=== PATIENT | female | born 1970 | race Caucasian/White ===

== ENCOUNTER → 2018-08-06 11:23 | Outpatient (CLI) | payer OTHER, SELFPAY ==
--- NOTE | 2018-08-06 11:33 | BI_ITS ---
MAMMOGRAPHY - BILATERAL SCREENING REASON FOR EXAM: Female, 48 years old. Routine annual screening examination. PERTINENT HISTORY: Non-contributory. TECHNIQUE: Digital bilateral breast arpit (3D mammographic acquisition) in the CC and MLO projections. 2-D mediolateral oblique (MLO) and craniocaudad (CC) views of both breasts were obtained. CAD: Full Field Digital Mammography with Computer Added Detection was performed. COMPARISON: Comparison is made with prior outside examination of January 18, 2017. FINDINGS: Breast Composition: The breasts are extremely dense, which lowers the sensitivity of mammography. There are no dominant masses or suspicious calcifications. Stable small bilateral benign-appearing axillary lymph nodes. No other significant abnormalities are identified. There has been no significant change since the prior study. BI/SCREENING MAMM (CAD), BILAT IMPRESSION: Stable bilateral screening mammogram. Yearly follow-up mammogram recommended. (A) ASSESSMENT CATEGORY: BIRADS Category 2: Benign. A letter regarding these results will be sent to the patient by the facility within 30 days. Approximately 10% of breast cancers are not detected by mammography. A normal mammogram should not delay biopsy of a clinically suspicious abnormality. [id number] Electronically Signed: Manav Akers MD at 14:12 EDT Tel [phone], Service support ,
== END ==
PROVIDERS: Referring Provider Nurse Practitioner Women's Health; Visit Provider Nurse Practitioner Women's Health
DX: N89.8 Other specified noninflammatory disorders of vagina (principal); Z12.31 Encounter for screening mammogram for malignant neoplasm of breast
CPT/HCPCS: 77063; 77067; 87070; 87077; 87205

== ENCOUNTER 2019-06-01 10:53 | Emergency (ER) | payer OTHER, SELFPAY ==
[2019-06-01 10:55] VITALS: BP 130/79; PULSE 88; RESP 17; TEMP 36.6; O2SAT 96; BMI 21.4
--- NOTE | 2019-06-01 11:20 | CT_ITS ---
STUDY: CT ABDOMEN AND PELVIS WITHOUT CONTRAST REASON FOR EXAM: Female, 48 years old. Lower abdominal pain, recent UTI RADIATION DOSAGE (If Supplied By Facility): CTDIvol = ( 7.83 ) mGy, DLP = ( 388.06 ) mGycm TECHNIQUE: Transaxial images were obtained from the dome of the diaphragm to the symphysis pubis without oral contrast, and without intravenous contrast. Sagittal and coronal images were reconstructed. Individualized dose optimization techniques were used for this CT. COMPARISON: None. FINDINGS: The visualized lung bases are unremarkable. The visualized portions of the heart are within normal limits. Normal liver. There are surgical clips in the gallbladder fossa consistent with a prior cholecystectomy. Normal spleen. Normal pancreas. Normal bilateral adrenal glands. No obstructive uropathy, simple left renal cyst. Normal visualized stomach. Normal small intestine. Normal colon. The appendix is visualized and appears normal. Appendix best seen on coronal recon image 56 Normal abdominal aorta. Normal inferior vena cava. Normal retroperitoneum. Normal urinary bladder. Uterus is enlarged suggesting there may be underlying fibroids. There are bilateral ovarian cysts, right measures 2.64 cm, left 3.9 cm Normal abdominal wall. Normal osseous structures. CT/Abdomen/Pelvis without Cont IMPRESSION: No obstructive uropathy, there is a simple left renal cyst Enlarged uterus suggests underlying fibroids. Bilateral ovarian cysts No free peritoneal fluid, air, or suspicious adenopathy No CT evidence of an acute inflammatory process, normal appendix visualized Electronically Signed: Elliot Fernandez MD at 12:29 EDT , Service support ,
[2019-06-01 11:38] LABS: Absolute Lymphocyte Count 1.03 X10^3/uL (0.83-4.51); Absolute Neutrophil Count 4.1 X10^3/uL (2.0-7.7); Basophil# 0.02 X10^3/uL; Basophil% 0.4 % (0-1); Eosinophils% 1.8 % (0-5); Hematocrit 40.9 % (37-47); Lymphocyte # 1.03 X10^3/ul (4.0); Lymphocyte % 18.4 % (19-41); Mean Corp Hgb Conc 34.2 g/dL (32-36); Mean Corpuscular Hgb 29.1 pg (27.0-32.0); Monocyte# 0.39 X10^3/uL; NRBC Flagged by Analyzer 0 % (0-5); Neutrophil # 4.06 X10^3/uL (2.7-7.7); Neutrophil % 72.2 % (47-70); Platelet Count 205 K/mm3 (150-450); RBC Distribution Width CV 12.6 % (11.6-14.6); RBC Distribution Width SD 38.9 fl (35.1-43.9); Red Blood Count 4.81 M/mm3 (4.2-5.4); White Blood Count 5.6 K/mm3 (4.4-11.0)
[2019-06-01 11:48] LABS: Anion Gap 3 (5-15); BUN 10 mg/dL (7-18); BUN/Creat Ratio 11.9 RATIO (10-20); Calcium,Total 9.7 mg/dL (8.5-10.1); Chloride 108 mmol/L (98-107); Creatinine, Serum 0.84 mg/dL (0.55-1.02); EST Glomerular Filtration Rate 76 mL/min (>60); Est Glom Filt Rate - Afr Amer 92 mL/min (>60); Estimated Creatinine Clearance 83.48 ml/min; Glucose 87 mg/dL (74-106); Sodium Level 138 mmol/L (136-145)
[2019-06-01] MEDS: 0.9% Normal Saline 1,000 ML 999 ML IV (11:54)
[2019-06-01] MEDS: Ondansetron 4 MG/2 ML Vial IV (11:54)
[2019-06-01] MEDS: Ketorolac 30 MG/ML Syringe IV (11:54)
[2019-06-01 11:56] VITALS: BP 125/79; PULSE 66; PULSE 68; RESP 16; TEMP 36.9; O2SAT 97; O2SAT 98
--- NOTE | 2019-06-01 11:58 | ED.DCSUM_ITS ---
History of Present Illness Chief Complaint: Dizziness Timing: Intermittent Current Severity: Severe Narrative: 48-year-old female presents with right flank pain. She was treated at [facility] in [facility] last Ruperto for a urinary tract infection. She was placed on Cipro. Since that time she has developed right flank pain that has been intermittent and occasionally radiating anteriorly. She is concerned for infected kidney stone. She has also felt nauseated and is concerned she is becoming dehydrated as she has occasionally felt lightheaded. She denies a history of kidney stone or pyelonephritis. Denies any recent trauma to the area. No fever or chills. She has been compliant with her Cipro. Past Medical History - Allergies and Home Meds Allergies/Adverse Reactions: Allergies No Known Allergies Allergy (Verified 06/01/19 10:55) Primary Care Physician: Barbra Brown,Out of [Primary Care Provider] - Prior records reviewed: Yes Smoking Status: Never smoker Review of Systems General: Reports: Malaise. Denies: Chills, Fever, Sweats Eyes: Denies: Visual changes - bilaterally, Diplopia ENT: Denies: Rhinorrhea, Sore throat Cardiovascular: Denies: Chest pain, Palpitations Respiratory: Denies: Dyspnea, Cough, Dyspnea on exertion Gastrointestinal: Reports: Nausea. Denies: Abdominal pain, Vomiting, Diarrhea, Melena, Hematochezia Genitourinary: Reports: Dysuria, Hematuria, Frequency Musculoskeletal: Reports: Back pain. Denies: Extremity Pain Skin: Denies: Rash, Wounds Neurological: Denies: Headache, Weakness, Numbness Physical Exam Vital Signs/Narrative: Vital Signs Temp Pulse Resp BP Pulse Ox 06/01/19 10:55 97.9 F 88 17 130/79 H 96 General: Well nourished, Well developed, No Acute Distress Head: Normocephalic, Atraumatic Eyes: Perrl, EOMI ENT: Moist mucous membranes, No rhinorrhea Neck: Supple, Nontender Cardiovascular: Regular rate, Regular rhythm, No murmurs Respiratory: No distress, CTA bilaterally, Chest nontender Abdomen: Soft, Nontender, Nondistended, Normal bowel sounds Back: Nontender, Normal Inspection Extremities: Nontender, No edema Skin: Normal color, No rash Neurological: Alert, Oriented x3, Cranial nerves II-XII grossly intact, Normal Strength, Normal Sensation Psychological: Normal affect, Normal Mood Diagnostic/Tx/Re-eval - Medical Decision Making White blood cell count is normal. Chemistries unremarkable. Urinalysis fairly unremarkable however I reviewed her culture from the outside hospital that I obtained and she is sensitive to Cipro and she did have greater than 100,000 E. coli. She had a few episodes of diarrhea today however she states that it did not seem like her C. difficile she had several years ago and she does not have a significant leukocytosis so I think C. difficile is highly unlikely at this point. I ordered a stool study but she was unable to produce a specimen and states that her diarrhea has improved. She feels that her symptoms are most likely secondary to side effects from the Cipro but she would prefer to stay on the Cipro at this point because of her history of C. difficile and does not want to take an additional antibiotic. She did have evidence of group B strep on her culture as well but she will discuss this with her doctor. She is feeling much better after fluids and looks quite well. Her CT scan is negative for obstructing stone. I feel she can safely be discharged home with close follow- up. ED Disposition - Plan for ED Patient: Disposition: Home or Assisted Living Diagnosis: Lower urinary tract infection Instructions: DIZZINESS, Unk Cause, DEHYDRATION (6y-Adult), Bladder Infection, Female (Adult) Prescriptions: Ondansetron [Zofran Odt] 4 mg PO Q8H PRN PRN #10 tablet PRN Reason: Nausea Referrals: [facility] Doctor,Out of [Primary Care Provider] - As soon as possible
[2019-06-01 12:57] LABS: Mucous, Urine 0 SEEN /hpf (<or=2+); Red Blood Cells-Urine 0 SEEN /hpf (0-5)
[2019-06-01 13:00] VITALS: BP 131/64; PULSE 66; RESP 16; O2SAT 100
[2019-06-01 13:00] LABS: Color, Urine Yellow (Yellow); Glucose, Dipstick Normal (Normal); Ketone-Dipstick Negative (Negative); Leukocyte Esterase-Dipstick 25 /ul (Negative); Nitrite-Dipstick Negative (Negative); Occult Blood-Urine Negative /ul (Negative); Protein-Dipstick Negative (Negative); Urine Bilirubin Dipstick Negative (Negative); Urine Clarity Clear (Clear); Urine Urobilinogen Normal (Normal); Urine pH 6.5 (5.0 - 8.0)
[2019-06-01 13:07] LABS: Bacteria RARE /hpf (None Seen); Squamous Epithelial Cells - UA 0-5 SEEN /hpf (5-10); White Blood Cells 0-5 SEEN /hpf (0-5)
[2019-06-01 14:09] VITALS: BP 132/75; PULSE 67; RESP 18; O2SAT 97
[2019-06-03 16:02] LABS: Protein C Antigen 112 % (60-150)
[2019-06-03 16:04] LABS: Protein C, Functional 125 % (73-180)
== END 2019-06-01 14:10 | disposition home or self-care (01) ==
PROVIDERS: Emergency Provider Emergency Medicine
DX: N39.0 Urinary tract infection, site not specified (principal); Z87.19 Personal history of other diseases of the digestive system
CPT/HCPCS: 74176; 80048; 81001; 85025; 85302; 85303; 96361; 96374; 96375; 99283; J7030; A4216; J2405

== ENCOUNTER → 2019-08-31 | Outpatient (CLI) | payer OTHER, SELFPAY ==
[2019-08-31 10:08] VITALS: BMI 21.4
--- NOTE | 2019-08-31 12:56 | BI_ITS ---
MAMMOGRAPHY - BILATERAL SCREENING REASON FOR EXAM: Female, 49 years old. Routine annual screening examination. PERTINENT HISTORY: Non-contributory. TECHNIQUE: Digital bilateral breast lindsey (3D mammographic acquisition) in the CC and MLO projections. 2-D mediolateral oblique (MLO) and craniocaudad (CC) views of both breasts were obtained. CAD: Full Field Digital Mammography with Computer Added Detection was performed. COMPARISON: Comparison is made with prior study dated August 06, 2018 and outside examination dated November 08, 2015. FINDINGS: Breast Composition: The breasts are extremely dense, which lowers the sensitivity of mammography. There are no dominant masses or suspicious calcifications. No other significant abnormalities are identified. There has been no significant change since the prior study. BI/SCREEN MAMM (CAD) W/LINDSEY BILAT IMPRESSION: Stable bilateral screening mammogram. Yearly follow-up mammogram recommended. (A) ASSESSMENT CATEGORY: BIRADS Category 1: Negative. A letter regarding these results will be sent to the patient by the facility within 30 days. Approximately 10% of breast cancers are not detected by mammography. A normal mammogram should not delay biopsy of a clinically suspicious abnormality. [id number] Electronically Signed: Manav Akers, at 13:56 EDT , Service support ,
[2019-09-03 15:35] LABS: HPV APTIMA, High Risk Negative (Negative)
== END | disposition home or self-care (01) ==
PROVIDERS: Referring Provider Nurse Practitioner Women's Health; Visit Provider Nurse Practitioner Women's Health
DX: Z12.4 Encounter for screening for malignant neoplasm of cervix (principal); Z12.31 Encounter for screening mammogram for malignant neoplasm of breast
CPT/HCPCS: 77063; 77067; 87624; 88175; G0145

== ENCOUNTER → 2019-09-07 12:06 | Outpatient (CLI) | payer OTHER, SELFPAY ==
--- NOTE | 2019-09-07 09:20 | EMB_PTH ---
PATIENT: CALEB GELLER LOC: [facility] U#:[id number] AGE/SX: 55/F ROOM: RE09/07/[address]: FRANDY Peters : 1970 BED: DIS: SPEC #: [id number] RECD: 09/07/19 12:05 STATUS: CHAYA MEL #: [id number] GIOVANNY: 09/07/19 09:[address]: Tiffanie Brenner NP DEPT: SURGICAL PATHOLOGY RECD BY: Trinidad Oliveira ENTERED: 09/07/19 12:42 SP TYPE: ENDOM BX/C MARGARITA DR: Out of [facility] Doctor Tissues: Endometrium, NOS Procedures: Surgery Specimen Level IV HEADER OPERATION: Endometrial biopsy PRE-OP DIAGNOSIS: Abnormal uterine bleeding TISSUE SUBMITTED: Endometrial lining MICROSCOPIC DIAGNOSIS Endometrial lining, biopsy: Secretory endometrium. SJ:johnny 09/08/19 MICROSCOPIC DESCRIPTION Slides are reviewed. GROSS DESCRIPTION Received is one container labeled with the patient's name and not further designated. The specimen consists of multiple irregular fragments of pink soft tissue that in aggregate measure 3 x 2.5 x 0.3 cm. The entire specimen is submitted in one cassette. / [place]:johnny 09/07/19 TC:5 CPT: 19080
[2019-09-07 09:25] VITALS: BMI 22.1
== END ==
PROVIDERS: Referring Provider Nurse Practitioner Women's Health; Visit Provider Nurse Practitioner Women's Health
DX: N93.9 Abnormal uterine and vaginal bleeding, unspecified (principal)
CPT/HCPCS: 88305

== ENCOUNTER → 2019-09-18 | Outpatient (CLI) | payer OTHER, SELFPAY ==
[2019-08-31 10:08] VITALS: BMI 21.4
[2019-09-07 09:25] VITALS: BMI 22.1
--- NOTE | 2019-09-18 12:15 | US_ITS ---
STUDY: ULTRASOUND OF THE FEMALE PELVIS - COMPLETE REASON FOR EXAM: Female, 49 years old. Excessive menses. LMP: September 13, 2019. TECHNIQUE: Transabdominal and Transvaginal TECHNICAL QUALITY: Adequate. COMPARISON: None. FINDINGS: The uterus is anteverted and is in a midline position. The uterus measures 10.5 cm x 6.5 cm x 6.3 cm. Normal uterine cervix. The endometrium measures 4.9 mm in thickness, and is hyperechoic. There is no demonstrated endometrial mass. 2 fibroids are seen. The larger measures 2.6 cm by 2.7 cm x 2.5 cm. I.U.D. - The patient does not have an I.U.D. The right ovary is visualized. The right ovary measures 2.4 cm x 3.2 cm x 2.4 cm. There is no right ovarian cyst or ovarian mass. There is no visualized right adnexal mass or complex lesion. There is normal arterial and normal venous vascularity. The left ovary is visualized. The left ovary measures 3.2 cm x 2.7 cm x 1.5 cm. A dominant follicle is seen within the ovary. There is no visualized left adnexal mass or complex lesion. There is normal arterial and normal venous vascularity. There is minimal fluid in the cul-de-sac. The pre void volume of the bladder was 916 ml. Polycystic ovary disease: No. US/Transvaginal Non- IMPRESSION: Enlarged fibroid uterus. Electronically Signed: Manav Akers, at 15:41 EST , Service support ,
--- NOTE | 2019-09-18 12:15 | US_ITS ---
STUDY: ULTRASOUND OF THE FEMALE PELVIS - COMPLETE REASON FOR EXAM: Female, 49 years old. Excessive menses. LMP: September 13, 2019. TECHNIQUE: Transabdominal and Transvaginal TECHNICAL QUALITY: Adequate. COMPARISON: None. FINDINGS: The uterus is anteverted and is in a midline position. The uterus measures 10.5 cm x 6.5 cm x 6.3 cm. Normal uterine cervix. The endometrium measures 4.9 mm in thickness, and is hyperechoic. There is no demonstrated endometrial mass. 2 fibroids are seen. The larger measures 2.6 cm by 2.7 cm x 2.5 cm. I.U.D. - The patient does not have an I.U.D. The right ovary is visualized. The right ovary measures 2.4 cm x 3.2 cm x 2.4 cm. There is no right ovarian cyst or ovarian mass. There is no visualized right adnexal mass or complex lesion. There is normal arterial and normal venous vascularity. The left ovary is visualized. The left ovary measures 3.2 cm x 2.7 cm x 1.5 cm. A dominant follicle is seen within the ovary. There is no visualized left adnexal mass or complex lesion. There is normal arterial and normal venous vascularity. There is minimal fluid in the cul-de-sac. The pre void volume of the bladder was 916 ml. Polycystic ovary disease: No. US/Pelvic (Non ) IMPRESSION: Enlarged fibroid uterus. Electronically Signed: Manav Akers, at 15:41 EST , Service support ,
== END | disposition home or self-care (01) ==
LOC: OPUS 12:14
PROVIDERS: Referring Provider Nurse Practitioner Women's Health; Visit Provider Nurse Practitioner Women's Health
DX: N92.0 Excessive and frequent menstruation with regular cycle (principal)
CPT/HCPCS: 76830; 76856

== ENCOUNTER → 2020-10-17 12:03 | Outpatient (CLI) | payer OTHER, SELFPAY ==
[2019-12-21 10:46] VITALS: BMI 22.7
--- NOTE | 2020-10-17 12:07 | BI_ITS ---
MAMMOGRAPHY - BILATERAL SCREENING REASON FOR EXAM: Female, 50 years old. Routine annual screening examination. PERTINENT HISTORY: Non-contributory. TECHNIQUE: Digital bilateral breast lindsey (3D mammographic acquisition) in the CC and MLO projections. 2-D mediolateral oblique (MLO) and craniocaudad (CC) views of both breasts were obtained. CAD: Full Field Digital Mammography with Computer Added Detection was performed. COMPARISON: Comparison is made with prior study dated 08/31/2019 and 08/06/2018. FINDINGS: Breast Composition: The breasts are extremely dense, which lowers the sensitivity of mammography. There are no dominant masses or suspicious calcifications. No other significant abnormalities are identified. There has been no significant change since the prior study. BI/SCREEN MAMM (CAD) W/LINDSEY BILAT IMPRESSION: Stable bilateral screening mammogram. Yearly follow-up mammogram recommended. (A) ASSESSMENT CATEGORY: BIRADS Category 1: Negative. A letter regarding these results will be sent to the patient by the facility within 30 days. Approximately 10% of breast cancers are not detected by mammography. A normal mammogram should not delay biopsy of a clinically suspicious abnormality. [id number] Electronically Signed: Manav Akers, at 12:44 EST , Service support ,
== END ==
PROVIDERS: Referring Provider Nurse Practitioner Women's Health; Visit Provider Nurse Practitioner Women's Health
DX: Z12.31 Encounter for screening mammogram for malignant neoplasm of breast (principal)
CPT/HCPCS: 77063; 77067

== ENCOUNTER → 2022-06-18 | Outpatient (CLI) | payer OTHER, SELFPAY ==
--- NOTE | 2022-06-18 12:25 | US_ITS ---
STUDY: ULTRASOUND OF THE FEMALE PELVIS - COMPLETE REASON FOR EXAM: Female, 51 years old. Menorrhagia LMP: 06/12/2022. TECHNIQUE: Transabdominal and Transvaginal TECHNICAL QUALITY: Adequate. COMPARISON: Comparison is made with prior study dated 09/18/2019. FINDINGS: The uterus is anteverted and is in a midline position. The uterus is enlarged and measures 13.2 cm x 8.3 cm x 6.4 cm. There is a Nabothian cyst of the cervix. The endometrium measures 5.6 mm in thickness, and is hyperechoic. There is no demonstrated endometrial mass. There is a 2.5 cm x 2.2 cm x 2.1 cm uterine fibroid. I.U.D. - The patient does not have an I.U.D. The right ovary is visualized. The right ovary measures 3.1 cm x 2.2 cm x 1.6 cm. There is no right ovarian cyst or ovarian mass. There is no visualized right adnexal mass or complex lesion. There is normal arterial and normal venous vascularity. The left ovary is non-visualized. There is no fluid in the cul-de-sac. The pre void volume of the bladder was 87.2 ml. US/Pelvic (Non ) IMPRESSION: Enlarged heterogeneous appearance of the uterus with a 2.5 cm x 2.7 x 2.1 cm fibroid. Electronically Signed: Manav Akers MD at 10:38 EDT ,
--- NOTE | 2022-06-18 12:25 | US_ITS ---
STUDY: ULTRASOUND OF THE FEMALE PELVIS - COMPLETE REASON FOR EXAM: Female, 51 years old. Menorrhagia LMP: 06/12/2022. TECHNIQUE: Transabdominal and Transvaginal TECHNICAL QUALITY: Adequate. COMPARISON: Comparison is made with prior study dated 09/18/2019. FINDINGS: The uterus is anteverted and is in a midline position. The uterus is enlarged and measures 13.2 cm x 8.3 cm x 6.4 cm. There is a Nabothian cyst of the cervix. The endometrium measures 5.6 mm in thickness, and is hyperechoic. There is no demonstrated endometrial mass. There is a 2.5 cm x 2.2 cm x 2.1 cm uterine fibroid. I.U.D. - The patient does not have an I.U.D. The right ovary is visualized. The right ovary measures 3.1 cm x 2.2 cm x 1.6 cm. There is no right ovarian cyst or ovarian mass. There is no visualized right adnexal mass or complex lesion. There is normal arterial and normal venous vascularity. The left ovary is non-visualized. There is no fluid in the cul-de-sac. The pre void volume of the bladder was 87.2 ml. US/Transvaginal Non- IMPRESSION: Enlarged heterogeneous appearance of the uterus with a 2.5 cm x 2.7 x 2.1 cm fibroid. Electronically Signed: Manav Akers MD at 10:38 EDT ,
== END | disposition home or self-care (01) ==
LOC: US 12:24
PROVIDERS: Visit Provider Nurse Practitioner Women's Health
DX: N92.0 Excessive and frequent menstruation with regular cycle (principal); D25.9 Leiomyoma of uterus, unspecified
CPT/HCPCS: 76830; 76856

== ENCOUNTER → 2022-07-19 | Outpatient (CLI) | payer OTHER, SELFPAY ==
[2022-07-19 15:31] LABS: Estradiol 89.9 pg/mL; Follicle Stimulating Hormone 24.3 mIU/mL
== END | disposition home or self-care (01) ==
LOC: PAVLAB 14:28
PROVIDERS: Referring Provider Obstetrics & Gynecology; Visit Provider Obstetrics & Gynecology
DX: N92.0 Excessive and frequent menstruation with regular cycle (principal)
CPT/HCPCS: 36415; 82670; 83001

== ENCOUNTER → 2022-12-20 | Outpatient (CLI) | payer OTHER, SELFPAY ==
[2022-12-20 14:51] LABS: Absolute Lymphocyte Count 2.07 X10^3/uL (0.83-4.51); Absolute Neutrophil Count 2.7 X10^3/uL (2.0-7.7); Basophil# 0.03 X10^3/uL; Basophil% 0.6 % (0-1); Eosinophil# 0.21 X10^3/uL; Eosinophils% 3.9 % (0-5); Hematocrit 41.3 % (37-47); Hemoglobin 14.4 g/dL (12.0-15.0); Lymphocyte # 2.07 X10^3/ul (0.83-4.51); Lymphocyte % 38.8 % (19-41); Mean Corp Hgb Conc 34.9 g/dL (32-36); Mean Corpuscular Volume 83.1 fL (81-99); Monocyte# 0.36 X10^3/uL; Monocyte% 6.8 % (0-10); NRBC Flagged by Analyzer 0 % (0-5); Neutrophil # 2.65 X10^3/uL (2.7-7.7); Neutrophil % 49.7 % (47-70); Platelet Count 218 K/mm3 (150-450); RBC Distribution Width CV 12.4 % (11.6-14.6); RBC Distribution Width SD 37.4 fl (35.1-43.9); Red Blood Count 4.97 M/mm3 (4.2-5.4); White Blood Count 5.3 K/mm3 (4.4-11.0)
[2022-12-20 15:15] LABS: Hemoglobin A1c 5.3 % (3.8-5.6)
[2022-12-20 15:17] LABS: ALB/GLOB Ratio 1.2 RATIO (0.9-2.4); AST(SGOT) 29 U/L (15-37); Alanine Aminotransfer ALT/SGPT 41 U/L (13-56); Albumin, Serum 4.5 g/dL (3.2-5.0); Alkaline Phosphatase 51 U/L (45-117); Anion Gap 8 (5-15); BUN 13 mg/dL (7-18); BUN/Creat Ratio 17.6 RATIO (10-20); Calcium,Total 9.8 mg/dL (8.5-10.1); Chloride 104 mmol/L (98-107); Cholesterol 197 mg/dL (200); Creatinine, Serum 0.74 mg/dL (0.55-1.02); EST Glomerular Filtration Rate 87 mL/min (>60); Est Glom Filt Rate - Afr Amer 105 mL/min (>60); Globulin 3.7 g/dL (2.2-4.2); Glucose 95 mg/dL (74-106); High Density Lipoprotein 34 mg/dL; Potassium 3.9 mmol/L (3.5-5.1); Protein, Total 8.2 g/dL (6.4-8.2); Sodium Level 142 mmol/L (136-145); Thyroid Stim Hormone (TSH) 0.85 uIU/mL (0.358-3.74); Triglycerides 346 mg/dL; Very Low Density Lipoprotein 69 mg/dL (5-40)
[2022-12-20 15:54] LABS: Vitamin D,25 Hydroxy 33.6 ng/mL
== END | disposition home or self-care (01) ==
LOC: PAVLAB 14:36
PROVIDERS: Referring Provider Obstetrics & Gynecology; Visit Provider Obstetrics & Gynecology
DX: N92.0 Excessive and frequent menstruation with regular cycle (principal)
CPT/HCPCS: 36415; 80053; 80061; 82306; 83036; 84443; 85025

== ENCOUNTER → 2023-03-06 | Outpatient (CLI) | payer OTHER, SELFPAY ==
--- NOTE | 2023-03-06 13:35 | BI_ITS ---
MAMMOGRAPHY - BILATERAL SCREENING REASON FOR EXAM: Female, 52 years old. Routine annual screening examination. PERTINENT HISTORY: Non-contributory. TECHNIQUE: Digital bilateral breast lindsey (3D mammographic acquisition) in the CC and MLO projections. 2-D mediolateral oblique (MLO) and craniocaudad (CC) views of both breasts were obtained. CAD: Full Field Digital Mammography with Computer Added Detection was performed. COMPARISON: Comparison is made with prior study dated October 17, 2020 and August 31, 2019. FINDINGS: Breast Composition: The breasts are extremely dense, which lowers the sensitivity of mammography. There are no dominant masses or suspicious calcifications. Stable benign appearing bilateral axillary lymph nodes. No other significant abnormalities are identified. There has been no significant change since the prior study. BI/SCRN MAMM (CAD)W/LINDSEY BILAT IMPRESSION: Stable bilateral screening mammogram. Yearly follow-up mammogram recommended. (A) ASSESSMENT CATEGORY: BIRADS Category 2: Benign. A letter regarding these results will be sent to the patient by the facility within 30 days. Approximately 10% of breast cancers are not detected by mammography. A normal mammogram should not delay biopsy of a clinically suspicious abnormality. [id number] Electronically Signed: Manav Akers MD at 14:39 EDT ,
== END | disposition home or self-care (01) ==
LOC: OPBI 13:34
PROVIDERS: PCP Internal Medicine; Referring Provider Internal Medicine; Visit Provider Internal Medicine
DX: Z12.31 Encounter for screening mammogram for malignant neoplasm of breast (principal)
CPT/HCPCS: 77063; 77067

== ENCOUNTER → 2023-05-08 | Outpatient (CLI) | payer OTHER, SELFPAY ==
--- NOTE | 2023-05-08 14:37 | US_ITS ---
ACR Level 3 findings have been noted. An addendum which confirms receipt of the report will follow. INDICATION: menorrhagia EXAMINATION: Ultrasound US Pelvis Non OB Complete With Transvaginal Imaging TECHNIQUE: Transabdominal and transvaginal pelvic ultrasound was performed. Grayscale, spectral waveform, and color flow Doppler evaluation of the adnexa. COMPARISON: FINDINGS: UTERUS: Anteverted. The uterus measures 12.2x8.2x7.5cm . Small lesions are noted in the uterus measuring 0.7 x 0.7 x 0.5 cm, 0.8 x 0.5 x 0.6 cm and 0.5 x 0.5 x 0.4 cm some with cystic areas and some calcification. The endometrial stripe measures 9.1 mm in AP diameter which is within normal limits. There is an endometrial polyp measuring 1.1 x 0.9 x 0.5 cm. RIGHT OVARY: Measures 3.8 x 1.9 x 1.9 cm. Non-enlarged, normal echogenicity. There is normal arterial inflow and venous outflow present in the right ovary. There is a 1.8 x 2 cm x 1.6 cm heterogeneous cyst in the right ovary. LEFT OVARY: Measures 2.8 x 2.1 x 1.7 cm. Non-enlarged, normal echogenicity. There is normal arterial inflow and venous outflow present in the left ovary. FREE FLUID: Small amount of free fluid is noted in the right adnexa. US/Pelvic (Non ) IMPRESSION: Small lesions in the uterus may represent fibroids. Small heterogeneous cyst in the right ovary. Continued follow-up recommended. Endometrial polyp. Direct visualization recommended. Electronically Signed: Saroj Harvey, at 16:40 EDT ,
== END | disposition home or self-care (01) ==
LOC: US 14:36
PROVIDERS: PCP Internal Medicine; Referring Provider Obstetrics & Gynecology; Visit Provider Obstetrics & Gynecology
DX: N92.0 Excessive and frequent menstruation with regular cycle (principal)
CPT/HCPCS: 76830; 76856

== ENCOUNTER → 2023-05-30 | Outpatient (CLI) | payer OTHER, SELFPAY ==
[2023-05-30 12:36] LABS: Absolute Lymphocyte Count 1.48 X10^3/uL (0.83-4.51); Absolute Neutrophil Count 2.4 X10^3/uL (2.0-7.7); Basophil# 0.04 X10^3/uL; Basophil% 0.9 % (0-1); Eosinophil# 0.17 X10^3/uL; Eosinophils% 3.8 % (0-5); Hematocrit 39.7 % (37-47); Hemoglobin 12.6 g/dL (12.0-15.0); Lymphocyte # 1.48 X10^3/ul (0.83-4.51); Lymphocyte % 32.7 % (19-41); Mean Corp Hgb Conc 31.7 g/dL (32-36); Mean Platelet Vol. 11.3 fl (6.2-12.0); Monocyte# 0.42 X10^3/uL; Monocyte% 9.3 % (0-10); NRBC Flagged by Analyzer 0 % (0-5); Neutrophil # 2.41 X10^3/uL (2.7-7.7); Neutrophil % 53.3 % (47-70); Platelet Count 213 K/mm3 (150-450); RBC Distribution Width CV 12.9 % (11.6-14.6); RBC Distribution Width SD 39.8 fl (35.1-43.9); Red Blood Count 4.67 M/mm3 (4.2-5.4); White Blood Count 4.5 K/mm3 (4.4-11.0)
[2023-05-30 12:59] LABS: Vitamin D,25 Hydroxy 74.8 ng/mL
[2023-05-30 13:23] LABS: ALB/GLOB Ratio 1.1 RATIO (0.9-2.4); AST(SGOT) 24 U/L (15-37); Alanine Aminotransfer ALT/SGPT 30 U/L (13-56); Alkaline Phosphatase 51 U/L (45-117); Anion Gap 4 (5-15); BUN 12 mg/dL (7-18); Chloride 108 mmol/L (98-107); Cholesterol 153 mg/dL (200); EST Glomerular Filtration Rate 79 mL/min (>60); Est Glom Filt Rate - Afr Amer 96 mL/min (>60); Globulin 3.6 g/dL (2.2-4.2); Glucose 97 mg/dL (74-106); High Density Lipoprotein 34 mg/dL; Potassium 4.3 mmol/L (3.5-5.1); Protein, Total 7.6 g/dL (6.4-8.2); Sodium Level 139 mmol/L (136-145); Triglycerides 200 mg/dL; Very Low Density Lipoprotein 40 mg/dL (5-40)
== END | disposition home or self-care (01) ==
LOC: BIMLAB 09:23
PROVIDERS: PCP Internal Medicine; Referring Provider Internal Medicine; Visit Provider Internal Medicine
DX: E55.9 Vitamin D deficiency, unspecified (principal); E78.1 Pure hyperglyceridemia
CPT/HCPCS: 36415; 80053; 80061; 82306; 85025

== ENCOUNTER → 2023-06-12 | Outpatient (CLI) | payer OTHER, SELFPAY | END | disposition home or self-care (01) | LOC: CVS 09:28 | PROVIDERS: PCP Internal Medicine; Referring Provider Internal Medicine; Visit Provider Internal Medicine | DX: I10 Essential (primary) hypertension (principal) | CPT/HCPCS: 93788 ==

== ENCOUNTER → 2023-08-29 | Outpatient (CLI) | payer OTHER, SELFPAY ==
--- NOTE | 2023-08-29 14:21 | US_ITS ---
INDICATION: fibroid uterus EXAMINATION: Ultrasound US Pelvis Non OB Complete With Transvaginal Imaging TECHNIQUE: Transabdominal and transvaginal pelvic ultrasound was performed. Grayscale, spectral waveform, and color flow Doppler evaluation of the adnexa. COMPARISON: 05/08/2023 FINDINGS: UTERUS: The uterus measures 11.1 x 6.0 x 5.8 cm. Heterogenous myometrium without well-defined focal lesions. The endometrial stripe measures 7 mm in AP diameter which is within normal limits. Hyperechoic endometrial polyp measures 0.9 x 0.9 x 0.8 cm. RIGHT OVARY: 2.4 x 1.9 x 1.5 cm. Non-enlarged, normal echogenicity. No waveforms obtained. LEFT OVARY: 2.1 x 2.0 x 2.8 cm. Non-enlarged, normal echogenicity. No waveforms obtained. FREE FLUID: None. US/Pelvic w/ Transvaginal IMPRESSION: Heterogenous myometrial echotexture without discrete fibroids. Slight decrease in size of the endometrial polyp since prior study. Electronically Signed: Kumar Zuñiga MD at 20:34 EDT ,
== END | disposition home or self-care (01) ==
LOC: OPUS 14:20
PROVIDERS: PCP Internal Medicine; Referring Provider Obstetrics & Gynecology; Visit Provider Obstetrics & Gynecology
DX: D25.9 Leiomyoma of uterus, unspecified (principal)
CPT/HCPCS: 76830; 76856

== ENCOUNTER → 2023-10-22 | Outpatient (CLI) | payer OTHER, SELFPAY ==
--- NOTE | 2023-10-23 | EMB_PTH ---
PATIENT: CALEB GELLER LOC: [facility] U#:[id number] AGE/SX: 53/F ROOM: RE10/22/[address]: Dr. Christel Avelar MD : 1970 BED: DIS: 10/22/2023 SPEC #: [id number] RECD: 10/23/23 09:45 STATUS: CHAYA MEL #: [id number] GIOVANNY: 10/23/23 00:[address]: Christel Avelar DEPT: SURGICAL PATHOLOGY RECD BY: Jesica Varghese ENTERED: 10/23/23 09:45 SP TYPE: ENDOM BX/C MARGARITA DR: Dr. Shayy Tyson MD Tissues: Endometrium, NOS Procedures: Surgery Specimen Level IV HEADER OPERATION: Endometrial biopsy PRE-OP DIAGNOSIS: Abnormal uterine bleeding TISSUE SUBMITTED: Endometrial lining MICROSCOPIC DIAGNOSIS Endometrium, biopsy: Scant fragments of benign superficial glandular epithelium. AM:johnny 10/24/2023 MICROSCOPIC DESCRIPTION Slides are reviewed. GROSS DESCRIPTION Received is one container labeled with the patient's name and not further designated. The specimen consists of multiple irregular fragments of curran-brown soft tissue that in aggregate measure 1.0 x 0.1 x 0.1 cm. The specimen is totally submitted in one cassette. / SJ:rg 10/23/2023 TC:5 CPT: 68920
== END | disposition home or self-care (01) ==
LOC: LABSPEC 13:59
PROVIDERS: PCP Internal Medicine; Referring Provider Obstetrics & Gynecology; Visit Provider Obstetrics & Gynecology
DX: N93.9 Abnormal uterine and vaginal bleeding, unspecified (principal)
CPT/HCPCS: 88305

== ENCOUNTER → 2023-11-07 | Outpatient (CLI) | payer OTHER, SELFPAY ==
[2023-11-07 13:17] LABS: Hematocrit 43.1 % (37-47); Hemoglobin 14.4 g/dL (12.0-15.0); Mean Corp Hgb Conc 33.4 g/dL (32-36); Mean Corpuscular Hgb 28.1 pg (27.0-32.0); Mean Corpuscular Volume 84.2 fL (81-99); Mean Platelet Vol. 10.6 fl (6.2-12.0); Platelet Count 211 K/mm3 (150-450); RBC Distribution Width CV 12.7 % (11.6-14.6); RBC Distribution Width SD 38.8 fl (35.1-43.9); Red Blood Count 5.12 M/mm3 (4.2-5.4); White Blood Count 4.8 K/mm3 (4.4-11.0)
--- OUTSIDE RECORDS SUMMARY | 2023-11-07 13:38 | XMS RPT_ITS | CCD ---
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 changes in hearing, difficulty or pain with swallowing, stridor, SOB, fever above 102, tachycardia, chest pain, vomiting, and incontinence. REVIEW OF SYSTEMS: As documented in HPI. A thorough 12 point review of systems was evaluated including Constitutional and general appearance, Head, Face, Ears, Eyes, Nose, Throat, Cardiovascular, Pulmonary, GI, , Skin, and Psychiatric and was found to be negative without symptoms or signs consistent with acute pathology with the exception of that specifically documented in the HPI section of this documentation. Remaining systems reviewed and negative other than the history of present illness. PAST MEDICAL HISTORY: No past medical history on file. SURGICAL HISTORY: No past surgical history on file. CURRENT MEDICATIONS: Patient's Medications New Prescriptions SULFAMETHOXAZOLE-TRIMETHOPRIM (BACTRIM DS) 800-160 MG PER TABLET Take 1 tablet by mouth 2 times daily for 7 days. Previous Medications AMITRIPTYLINE 10 MG TABLET Take 10 mg by mouth. BUPROPION 150 MG TABLET XL Take 150 mg by mouth daily. FLAXSEED OIL OIL Take 3,600 mg by mouth daily. LISINOPRIL 5 MG TABLET Take 5 mg by mouth. TURMERIC PO Take 500 mg by mouth daily. Modified Medications No medications on file Discontinued Medications No medications on file ALLERGIES: Allergies Allergen Reactions Escitalopram Other reaction(s): Other: See Comments Nausea, constipation, teeth grinding Other reaction(s): Other: See Comments Nausea, constipation, teeth grinding FAMILY HISTORY: History reviewed. No pertinent family history. SOCIAL HISTORY: Social History Socioeconomic History Marital status: Spouse name: Not on file Number of children: Not on file Years of education: Not on file Highest education level: Not on file Occupational History Not on file Tobacco Use Smoking status: Never Smokeless tobacco: Never Substance and Sexual Activity Alcohol use: Not on file Drug use: Not on file Sexual activity: Not on file Other Topics Concern Not on file Social History Narrative Not on file Social Determinants of Health Financial Resource Strain: Not on file Food Insecurity: Not on file Transportation Needs: Not on file Physical Activity: Not on file Stress: Not on file Social Connections: Not on file Intimate Partner Violence: Not on file Housing Stability: Not on file PHYSICAL EXAM: Constitutional: Alert and well-developed, well-nourished, and in no distress. Non-toxic appearance. HEENT: Normocephalic and atraumatic. Extra ocular muscles intact.. Pupils are equal and round. No discharge. No scleral icterus. No asymmetry or fullness. No stridor. Neck: Neck supple. No cervical adenopathy. No meningismus. Cardiovascular: Regular rate and rhythm, normal heart sounds and intact distal pulses. No murmur heard. Pulmonary/Chest: Effort and breath sounds normal. No accessory muscle usage or stridor. No respiratory distress. No retractions or nasal flaring. Abdomen: Soft and non-distended. Bowel sounds are normal. No masses or organomegaly. No appreciable tenderness. Musculoskeletal: Normal muscle tone. Full range of motion of major joints. Neurological: Alert and interactive. No focal weakness, tremor, or facial asymmetry. Normal muscle tone. Sensation is intact. Skin: Skin is warm and dry. No pallor. Nails show no clubbing. 2nd digit of right hand has a 1 cm tense blister near interphalangeal joint. Mild erythema without evidence of purulence. No area of fluctuance but examination limited due to tension of edema present. VITAL SIGNS DURING ED VISIT: Patient Vitals for the past 24 hrs: BP Temp Pulse Resp SpO2 Height 03/16/23 0443 -- -- -- -- -- 1.727 m (5' 8 ) 03/16/23 0437 157/86 98 F (36.7 C) 62 20 98 % -- ED COURSE & MEDICAL DECISION MAKIN yo woman who presents with cellulitis/abscess. No signs of purulence. Provided appropriate antibiotic. Recommended returning to ER if there is an increase in symptoms or warning signs of serious infection including but not limited to altered mental status, confusion, dizziness, syncope, severe sustained headache, dysphagia, changes in vision, changes in hearing, difficulty or pain with swallowing, stridor, SOB, fever above 102, tachycardia, chest pain, vomiting, and incontinence. When considering history, physical exam, and assays collected and reviewed in the ER, I do not believe the patient has a condition requiring further emergency treatment, and I do not believe the patient has significant symptoms of disease that would require observation or treatment in the hospital setting. At time of discharge, the patient was hemodynamically stable and all major body systems were reviewed and the patient was free of symptoms that would suggest additional pathologic conditions. Recommend fu with PCP to review care and for further treatment of health care needs. ORDERS/RESULTS: Orders Placed This Encounter XR FINGER 2ND RIGHT Sulfamethoxazole-trimethoprim (BACTRIM DS) 800-160 MG per tablet 1 tablet Sodium chloride 0.9% IV solution 500 mL Sulfamethoxazole-trimethoprim (Bactrim DS) 800-160 MG per tablet Results for orders placed or performed during the hospital encounter of 09/27/21 XR ELBOW RIGHT 3+ VIEWS Result Value Ref Range BSA 1.87 m2 IMAGING: XR FINGER 2ND RIGHT (Results Pending) CONSULTATIONS: None PROCEDURES: None CLINICAL IMPRESSION: 1. Cellulitis of finger of right hand Active DISPOSITION: Discharge No follow-ups on file. New Prescriptions SULFAMETHOXAZOLE-TRIMETHOPRIM (BACTRIM DS) 800-160 MG PER TABLET Take 1 tablet by mouth 2 times daily for 7 days. Discontinued Medications No medications on file An after visit summary was printed and given to the patient with the above information. Portions of this chart were created using [facility] electronic dictation. Please excuse any typographical or grammatical errors contained herein. Estuardo Gallo MD 03/16/23 0553 documented in this encounter [facility] 03-16-2023 Emergency department Note Pt resting in room given warm blanket at this time. Pt vs stable. Pt denies any further needs at this time. Pt respirations equal non labored no distress noted. Call samuels in reach. [facility] 03-16-2023 Physician Emergency department Note eMERGENCY dEPARTMENT report [facility] EMERGENCY MEDICINE SERVICE DATE: 03/16/23 PCP: Trisha Sharp CHIEF COMPLAINT: Chief Complaint Patient presents with Skin Problem R index finger raised ecchymotic 1cm circular area pt reports has been there since she cut her finger on a broken pickle jar 4 days ago HPI: Caleb Carpenter is a 52 y.o. female who presents with swelling of right index finger. Patient cut her finger on a pickle jar 6 days ago which was healing but she had an increase in pain and swelling over the last 24 hours. Patient has a 1 cm well circumscribed bump near interphalangeal joint of index finger. Denies symptoms or warning signs of serious infection including but not limited to altered mental status, confusion, dizziness, syncope, severe sustained headache, dysphagia, changes in vision, changes in hearing, difficulty or pain with swallowing, stridor, SOB, fever above 102, tachycardia, chest pain, vomiting, and incontinence. REVIEW OF SYSTEMS: As documented in HPI. A thorough 12 point review of systems was evaluated including Constitutional and general appearance, Head, Face, Ears, Eyes, Nose, Throat, Cardiovascular, Pulmonary, GI, , Skin, and Psychiatric and was found to be negative without symptoms or signs consistent with acute pathology with the exception of that specifically documented in the HPI section of this documentation. Remaining systems reviewed and negative other than the history of present illness. PAST MEDICAL HISTORY: No past medical history on file. SURGICAL HISTORY: No past surgical history on file. CURRENT MEDICATIONS: Patient's Medications New Prescriptions SULFAMETHOXAZOLE-TRIMETHOPRIM (BACTRIM DS) 800-160 MG PER TABLET Take 1 tablet by mouth 2 times daily for 7 days. Previous Medications AMITRIPTYLINE 10 MG TABLET Take 10 mg by mouth. BUPROPION 150 MG TABLET XL Take 150 mg by mouth daily. FLAXSEED OIL OIL Take 3,600 mg by mouth daily. LISINOPRIL 5 MG TABLET Take 5 mg by mouth. TURMERIC PO Take 500 mg by mouth daily. Modified Medications No medications on file Discontinued Medications No medications on file ALLERGIES: Allergies Allergen Reactions Escitalopram Other reaction(s): Other: See Comments Nausea, constipation, teeth grinding Other reaction(s): Other: See Comments Nausea, constipation, teeth grinding FAMILY HISTORY: History reviewed. No pertinent family history. SOCIAL HISTORY: Social History Socioeconomic History Marital status: Spouse name: Not on file Number of children: Not on file Years of education: Not on file Highest education level: Not on file Occupational History Not on file Tobacco Use Smoking status: Never Smokeless tobacco: Never Substance and Sexual Activity Alcohol use: Not on file Drug use: Not on file Sexual activity: Not on file Other Topics Concern Not on file Social History Narrative Not on file Social Determinants of Health Financial Resource Strain: Not on file Food Insecurity: Not on file Transportation Needs: Not on file Physical Activity: Not on file Stress: Not on file Social Connections: Not on file Intimate Partner Violence: Not on file Housing Stability: Not on file PHYSICAL EXAM: Constitutional: Alert and well-developed, well-nourished, and in no distress. Non-toxic appearance. HEENT: Normocephalic and atraumatic. Extra ocular muscles intact.. Pupils are equal and round. No discharge. No scleral icterus. No asymmetry or fullness. No stridor. Neck: Neck supple. No cervical adenopathy. No meningismus. Cardiovascular: Regular rate and rhythm, normal heart sounds and intact distal pulses. No murmur heard. Pulmonary/Chest: Effort and breath sounds normal. No accessory muscle usage or stridor. No respiratory distress. No retractions or nasal flaring. Abdomen: Soft and non-distended. Bowel sounds are normal. No masses or organomegaly. No appreciable tenderness. Musculoskeletal: Normal muscle tone. Full range of motion of major joints. Neurological: Alert and interactive. No focal weakness, tremor, or facial asymmetry. Normal muscle tone. Sensation is intact. Skin: Skin is warm and dry. No pallor. Nails show no clubbing. 2nd digit of right hand has a 1 cm tense blister near interphalangeal joint. Mild erythema without evidence of purulence. No area of fluctuance but examination limited due to tension of edema present. VITAL SIGNS DURING ED VISIT: Patient Vitals for the past 24 hrs: BP Temp Pulse Resp SpO2 Height 03/16/23 0443 -- -- -- -- -- 1.727 m (5' 8 ) 03/16/23 0437 157/86 98 F (36.7 C) 62 20 98 % -- ED COURSE & MEDICAL DECISION MAKIN yo woman who presents with cellulitis/abscess. No signs of purulence. Provided appropriate antibiotic. Recommended returning to ER if there is an increase in symptoms or warning signs of serious infection including but not limited to altered mental status, confusion, dizziness, syncope, severe sustained headache, dysphagia, changes in vision, changes in hearing, difficulty or pain with swallowing, stridor, SOB, fever above 102, tachycardia, chest pain, vomiting, and incontinence. When considering history, physical exam, and assays collected and reviewed in the ER, I do not believe the patient has a condition requiring further emergency treatment, and I do not believe the patient has significant symptoms of disease that would require observation or treatment in the hospital setting. At time of discharge, the patient was hemodynamically stable and all major body systems were reviewed and the patient was free of symptoms that would suggest additional pathologic conditions. Recommend fu with PCP to review care and for further treatment of health care needs. ORDERS/RESULTS: Orders Placed This Encounter XR FINGER 2ND RIGHT Sulfamethoxazole-trimethoprim (BACTRIM DS) 800-160 MG per tablet 1 tablet Sodium chloride 0.9% IV solution 500 mL Sulfamethoxazole-trimethoprim (Bactrim DS) 800-160 MG per tablet Results for orders placed or performed during the hospital encounter of 09/27/21 XR ELBOW RIGHT 3+ VIEWS Result Value Ref Range BSA 1.87 m2 IMAGING: XR FINGER 2ND RIGHT (Results Pending) CONSULTATIONS: None PROCEDURES: None CLINICAL IMPRESSION: 1. Cellulitis of finger of right hand Active DISPOSITION: Discharge No follow-ups on file. New Prescriptions SULFAMETHOXAZOLE-TRIMETHOPRIM (BACTRIM DS) 800-160 MG PER TABLET Take 1 tablet by mouth 2 times daily for 7 days. Discontinued Medications No medications on file An after visit summary was printed and given to the patient with the above information. Portions of this chart were created using [facility] electronic dictation. Please excuse any typographical or grammatical errors contained herein. Estuardo Gallo MD 03/16/23 0553 [facility] 09-03-2022 Note HNO ID: [id number] Author: Adam Cobb PA-C Service: ? Author Type: Physician Catalyst Unit Operator Type: Progress Notes Filed: 09/03/2022 8:40 PM Note Text: This is an [facility] eVisit note for Caleb Carpenter eVisit/Questionnaire reviewed The chief complaint for the visit - Patient presents with: Sinus Problem Recommendations/Treatment plan - See My Chart Message to patient Adam Cobb PA-C [facility] 09-03-2022 History of Present illness Narrative This is an [facility] eVisit note for Caleb Carpenter eVisit/Questionnaire reviewed The chief complaint for the visit - Patient presents with: Sinus Problem Recommendations/Treatment plan - See My Chart Message to patient Adam Cobb PA-C documented in this encounter [facility] 06-11-2022 Note HNO ID: [id number] Author: Glenny Andrew MD Service: ? Author Type: Physician Type: Progress Notes Filed: 06/11/2022 9:23 AM Note Text: [facility] SERVICE DATE: June 11, 2022 SERVICE TIME: 9:18 AM REASON FOR CONSULT: I am asked to see this patient in consultation for my opinion regarding proteinuria. My recommendations will be communicated by way of shared medical record, fax, or mail. REQUESTING PHYSICIAN: Dioni Justice DO PRIMARY CARE PHYSICIAN: Mc Herrera MD CHIEF COMPLAINT: I have protein in my urine. This visit was conducted as a virtual visit. HPI: Ms. Carpenter is a 51 year old female who presents with proteinuria detected at a rheumatology visit, where presented with joint pain, positive BRAXTON and leukopenia. Undifferentiated connective tissue disease was suspected and tentative plans for Plaquenil were made. Her other past medical history includes hypertension for which she takes lisinopril and fibroids with heavy menstrual periods. She reports that the urinalysis on 05/16/2022 was done while she was having a period. UBC showed 1.3. her prior UAs, most recently in 2019 and in 2016 were bland. She reports no urinary symptoms. PAST MEDICAL HISTORY: PAST MEDICAL HISTORY Diagnosis Date - C. difficile colitis 2007 - Coccydynia - Essential hypertension - Migraine, unspecified, with intractable migraine, so stated, without mention of status migrainosus for only about a year around 9434-1027 PAST SURGICAL HISTORY: PAST SURGICAL HISTORY Procedure Laterality Date - COLONOSCOPY FLX DX W/COLLJ SPEC WHEN PFRMD 07/22/2008 Colonoscopy - LAPAROSCOPY SURG CHOLECYSTECTOMY 11/11/1996 Cholecystectomy, lap - LIGATE FALLOPIAN TUBE FAMILY HISTORY: FAMILY HISTORY Problem Relation Age of Onset - Hypertension Mother - other (polymyalgia rheumatica) Mother - Coronary Artery Disease Mother - Hypertension Father - Diabetes Father - Heart Sister Heart Ablation - Diabetes Sister - Heart Maternal Grandmother - Stroke Maternal Grandmother - Dementia Maternal Grandfather - Diabetes Paternal Grandmother - Heart Paternal Grandfather - Kidney Disease Son kidney transplant 2012 - Diabetes Paternal Aunt - Diabetes Paternal Uncle - Depression No Family History SOCIAL HISTORY: Social History Tobacco Use - Smoking status: Never Smoker - Smokeless tobacco: Never Used Vaping Use - Vaping Use: Never used Substance Use Topics - Alcohol use: No - Drug use: No MEDICATIONS: lisinopril (ZESTRIL, PRINIVIL) 5 mg tablet docosahexaenoic acid/epa (FISH OIL ORAL) Take by mouth. drospirenone, contraceptive, (SLYND) 4 mg (28) tabet Take 1 tablet by mouth once daily. miSOPROStol (CYTOTEC) 200 mcg tablet Insert 2 tablets vaginally night prior to procedure and 2 tablets morning of procedure. Each dose should be in vagina for 6-8 hours. miSOPROStol (CYTOTEC) 200 mcg tablet Insert 2 tablets vaginally night prior to procedure and 2 tablets morning of procedure. Each dose should be in vagina for 6-8 hours. ALLERGIES: ALLERGIES Allergen Reactions - Environmental [Othe* Itching - Lexapro [Escitalopr* Other: See Comments Nausea, constipation, teeth grinding REVIEW OF SYSTEMS: General: Negative for weight loss, night sweats, fever, and fatigue Head/Neck: Negative for photophobia, oral ulcers/sores, metallic or bitter taste, epistaxis, and chronic nasal congestion Cardiac: Negative for syncope, palpitations, orthopnea, lightheadedness, dizziness, chest pain or pressure, and PND Vascular: Negative for raynauds, edema, and claudication Pulmonary: Negative for hemoptosis, dyspnea, and cough GastroIntestinal: Negative for nausea, loss of appetite, emesis, diarrhea, constipation, and abdominal pain Genito-Urinary: Negative for urinary hesitancy, urinary frequency, straining, pink or red urine, pain with urination, nocturia, groin pain, frothy urine, flank pain, and decreased urine Musculoskeletal: Positive for joint pain; Negative for joint swelling Neurologic: Negative for weakness, tremor, parathesias, and numbness Skin: Negative for rash, photosensitivity, and malar rash Hematology: Negative for easy bruising, and easy bleeding Endocrinology: Negative for hypoglycemic events, and heat or cold intolerance Other: Negative for morning headache, excessive snoring, and daytime somnolence PHYSICAL EXAM: LMP 06/08/2021 This PE is limited by the virtual/video format of the visit. Constitutional:Well appearing, alert, in no acute distress Eyes: Conjunctiva clear , No lesions Ear, Nose and Throat: Lips normal Neck: No mass noted Cardiovascular: No edema Respiratory: Normal inspiratory effort Breaths regular Abdomen: Deferred Musculoskeletal: Normocephalic, No deformity Neurologic: No focal deficit Psychiatric: AAO, Calm Skin: No rashes DATA: Diagnost (more content not included)... [facility] 06-11-2022 History of Present illness Narrative [facility] SERVICE DATE: June 11, 2022 SERVICE TIME: 9:18 AM REASON FOR CONSULT: I am asked to see this patient in consultation for my opinion regarding proteinuria. My recommendations will be communicated by way of shared medical record, fax, or mail. REQUESTING PHYSICIAN: Dioni Justice DO PRIMARY CARE PHYSICIAN: Mc Herrera MD CHIEF COMPLAINT: I have protein in my urine. This visit was conducted as a virtual visit. HPI: Ms. Carpenter is a 51 year old female who presents with proteinuria detected at a rheumatology visit, where presented with joint pain, positive BRAXTON and leukopenia. Undifferentiated connective tissue disease was suspected and tentative plans for Plaquenil were made. Her other past medical history includes hypertension for which she takes lisinopril and fibroids with heavy menstrual periods. She reports that the urinalysis on 05/16/2022 was done while she was having a period. UBC showed 1.3. her prior UAs, most recently in 2019 and in 2015 were bland. She reports no urinary symptoms. PAST MEDICAL HISTORY: PAST MEDICAL HISTORY Diagnosis Date C. difficile colitis 2007 Coccydynia Essential hypertension Migraine, unspecified, with intractable migraine, so stated, without mention of status migrainosus for only about a year around [id number] PAST SURGICAL HISTORY: PAST SURGICAL HISTORY Procedure Laterality Date COLONOSCOPY FLX DX W/COLLJ SPEC WHEN PFRMD 07/22/2008 Colonoscopy LAPAROSCOPY SURG CHOLECYSTECTOMY 11/11/1996 Cholecystectomy, lap LIGATE FALLOPIAN TUBE FAMILY HISTORY: FAMILY HISTORY Problem Relation Age of Onset Hypertension Mother other (polymyalgia rheumatica) Mother Coronary Artery Disease Mother Hypertension Father Diabetes Father Heart Sister Heart Ablation Diabetes Sister Heart Maternal Grandmother Stroke Maternal Grandmother Dementia Maternal Grandfather Diabetes Paternal Grandmother Heart Paternal Grandfather Kidney Disease Son kidney transplant 2012 Diabetes Paternal Aunt Diabetes Paternal Uncle Depression No Family History SOCIAL HISTORY: Social History Tobacco Use Smoking status: Never Smoker Smokeless tobacco: Never Used Vaping Use Vaping Use: Never used Substance Use Topics Alcohol use: No Drug use: No MEDICATIONS: lisinopril (ZESTRIL, PRINIVIL) 5 mg tablet docosahexaenoic acid/epa (FISH OIL ORAL) Take by mouth. drospirenone, contraceptive, (SLYND) 4 mg (28) tabet Take 1 tablet by mouth once daily. miSOPROStol (CYTOTEC) 200 mcg tablet Insert 2 tablets vaginally night prior to procedure and 2 tablets morning of procedure. Each dose should be in vagina for 6-8 hours. miSOPROStol (CYTOTEC) 200 mcg tablet Insert 2 tablets vaginally night prior to procedure and 2 tablets morning of procedure. Each dose should be in vagina for 6-8 hours. ALLERGIES: ALLERGIES Allergen Reactions Environmental [Othe* Itching Lexapro [Escitalopr* Other: See Comments Nausea, constipation, teeth grinding REVIEW OF SYSTEMS: General: Negative for weight loss, night sweats, fever, and fatigue Head/Neck: Negative for photophobia, oral ulcers/sores, metallic or bitter taste, epistaxis, and chronic nasal congestion Cardiac: Negative for syncope, palpitations, orthopnea, lightheadedness, dizziness, chest pain or pressure, and PND Vascular: Negative for raynauds, edema, and claudication Pulmonary: Negative for hemoptosis, dyspnea, and cough GastroIntestinal: Negative for nausea, loss of appetite, emesis, diarrhea, constipation, and abdominal pain Genito-Urinary: Negative for urinary hesitancy, urinary frequency, straining, pink or red urine, pain with urination, nocturia, groin pain, frothy urine, flank pain, and decreased urine Musculoskeletal: Positive for joint pain; Negative for joint swelling Neurologic: Negative for weakness, tremor, parathesias, and numbness Skin: Negative for rash, photosensitivity, and malar rash Hematology: Negative for easy bruising, and easy bleeding Endocrinology: Negative for hypoglycemic events, and heat or cold intolerance Other: Negative for morning headache, excessive snoring, and daytime somnolence PHYSICAL EXAM: [facility] 06/08/2021 This PE is limited by the virtual/video format of the visit. Constitutional:Well appearing, alert, in no acute distress Eyes: Conjunctiva clear , No lesions Ear, Nose and Throat: Lips normal Neck: No mass noted Cardiovascular: No edema Respiratory: Normal inspiratory effort Breaths regular Abdomen: Deferred Musculoskeletal: Normocephalic, No deformity Neurologic: No focal deficit Psychiatric: AAO, Calm Skin: No rashes DATA: Diagnostic tests reviewed for today's visit: Component Latest Ref Rng & Units 05/16/2022 Protein, Total 6.3 - 8.0 g/dL 7.1 Albumin 3.9 - 4.9 g/dL 4.7 Calcium 8.5 - 10.2 mg/dL 9.3 Bilirubin, Total 0.2 - 1.3 mg/dL 0.5 Alkaline Phosphatase 34 - 123 U/L 51 AST 13 - 35 U/L 31 ALT 7 - 38 U/L 41 (H) Glucose 74 - 99 mg/dL 78 BUN 7 - 21 mg/dL 13 Creatinine 0.58 - 0.96 mg/dL 0.81 Sodium 136 - 144 mmol/L 138 Potassium 3.7 - 5.1 mmol/L 4.3 Chloride 97 - 105 mmol/L 102 CO2 22 - 30 mmol/L 24 Anion Gap 9 - 18 mmol/L 12 eGFR >=60 mL/min/1.73m 87 Color Yellow Red (A) Clarity Clear Cloudy (A) Glucose, Urine Negative Negative Bilirubin, Urine Negative Negative Ketones, Urine Negative Negative Specific [place], Ur 1.005 - 1.030 1.018 Hemoglobin/Blood,Ur Negative 3+ (A) pH, Urine 5.0 - 8.0 6.0 Protein, Urine Negative 2+ (A) Urobilinogen Negative Negative Nitrites Negative Negative Leukest Negative Negative WBC, Urine 0-5 /HPF 0-5 /HPF RBC, Urine 0-3 /HPF >25 /HPF (A) Protein, Urine Random 0 - 20 mg/dL 155 (H) Creatinine, Ur Random (UCRR) 20.0 - 300.0 mg/dL 122.1 Protein/Creat Ratio <0.2 1.3 (H) ASSESSMENT/PLAN : 51 year old female who presents with proteinuria. This is likely due to blood contamination of vaginal source. I will repeat UA and UPC 2 weeks after her next period ends and if proteinuria still significant,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 Synchronous Audiovisual [facility] 07/18/2021 Trisha Sharp DO Provider Location: office Patient Location Machine Maintenance Mechanic: None Patient Location: Patient's Home Patient: Caleb Carpenter Date of : 1970 (51 y.o. female) PCP: Trisha Sharp DO Video Visit Consent Statement: I discussed risks, benefits and alternatives of a real-time synchronous audiovisual consultation with the patient (and any accompanying persons) including the risks that the patient s personal health details and medical records will be discussed over real-time, synchronous, interactive video/audio/telecommunication technology, the visit will not be recorded without the express consent of both the provider and the patient, and that there are some limitations compared to [id number] evaluations. We elected to proceed. Patient ID: Caleb Carpenter is a 51 y.o. female. HPI Caleb is here today for covid 19 f/u She was c/o vertigo and hot flashes over the weekend. She ended up at the ER and was diagnosed with covid. She has had fevers and chills She was diagnosed with covid 19 on 07/11- will be out of quarantine on 07/20/2021. She does have a history of BPPV- they did increase her meclizine to 25 mg and gave her zofran which is helping. She is starting to feel better. Reports today is the first day without a fever. She is having joint pain. I did start her on prednisone at our last f/u. Reports no coughing. Overall feels better Denies any shortness of breath, chest pain, palpitations. Still having some vertigo but much improved. Not using antivert much. The following portions of the patient's history were reviewed and updated as appropriate: allergies, current medications, past family history, past medical history, past social history, past surgical history and problem list. Review of Systems Constitutional: Positive for fatigue. Negative for chills and fever. HENT: Negative for congestion, postnasal drip, rhinorrhea, sinus pressure and sneezing. Respiratory: Negative for cough and shortness of breath. Cardiovascular: Negative for chest pain, palpitations and leg swelling. Musculoskeletal: Positive for myalgias. Negative for arthralgias. Neurological: Negative for dizziness and headaches. Objective Physical Exam Vitals and nursing note reviewed. Constitutional: Appearance: Normal appearance. HENT: Head: Normocephalic and atraumatic. Eyes: Conjunctiva/sclera: Conjunctivae normal. Pulmonary: Effort: Pulmonary effort is normal. No respiratory distress. Neurological: General: No focal deficit present. Mental Status: She is alert and oriented to person, place, and time. Cranial Nerves: No cranial nerve deficit. Psychiatric: Mood and Affect: Mood normal. Behavior: Behavior normal. Thought Content: Thought content normal. Judgment: Judgment normal. Assessment/Plan: Diagnoses and all orders for this visit: COVID-19 Comments: stable. continue quarantine until 07/20. continue and finish prednisone Essential hypertension Comments: stable. continue lisinopril Vertigo Comments: stable. continue antivert and zofran documented in this encounter [place] 07-13-2021 History of Present illness Narrative Video Visit [facility] [employer] [facility] [address] [facility] [id number] Via Real-time Synchronous Audiovisual [facility] 07/13/2021 Trisha Sharp DO Provider Location: home Patient Location Machine Maintenance Mechanic: None Patient Location: Patient's Home Patient: Caleb Carpenter Date of : 1970 (51 y.o. female) PCP: Trisha Sharp, DO Video Visit Consent Statement: I discussed risks, benefits and alternatives of a real-time synchronous audiovisual consultation with the patient (and any accompanying persons) including the risks that the patient s personal health details and medical records will be discussed over real-time, synchronous, interactive video/audio/telecommunication technology, the visit will not be recorded without the express consent of both the provider and the patient, and that there are some limitations compared to [id number] evaluations. We elected to proceed. Patient ID: Caleb Carpenter is a 51 y.o. female. HPI Caleb is here today for ER f/u. She was c/o vertigo and hot flashes over the weekend. She ended up at the ER and was diagnosed with covid. She has had fevers and chills She was diagnosed with covid 19 on 07/11- will be out of quarantine on 07/20/2021. She does have a history of BPPV- they did increase her meclizine to 25 mg and gave her zofran which is helping. She is starting to feel better. Reports today is the first day without a fever. She is having joint pain. Her mother, who is a nurse, gave her tramadol to take, however, I advised that this is a bad idea. Denies any shortness of breath, chest pain, palpitations. Still having some vertigo The following portions of the patient's history were reviewed and updated as appropriate: allergies, current medications, past family history, past medical history, past social history, past surgical history and problem list. Review of Systems Constitutional: Positive for chills, fatigue and fever. HENT: Positive for congestion, postnasal drip, rhinorrhea and sinus pressure. Negative for sinus pain and sore throat. Eyes: Negative for photophobia and visual disturbance. Respiratory: Negative for cough, chest tightness, shortness of breath and wheezing. Cardiovascular: Negative for chest pain, palpitations and leg swelling. Gastrointestinal: Negative for abdominal pain. Musculoskeletal: Positive for arthralgias and myalgias. Neurological: Positive for dizziness, light-headedness and headaches. Negative for tremors, seizures, syncope, facial asymmetry, speech difficulty and numbness. Psychiatric/Behavioral: Negative for decreased concentration, dysphoric mood and sleep disturbance. The patient is not nervous/anxious. Objective Physical Exam Vitals and nursing note reviewed. Constitutional: Appearance: Normal appearance. HENT: Head: Normocephalic and atraumatic. Eyes: Conjunctiva/sclera: Conjunctivae normal. Pulmonary: Effort: Pulmonary effort is normal. No respiratory distress. Neurological: General: No focal deficit present. Mental Status: She is alert and oriented to person, place, and time. Cranial Nerves: No cranial nerve deficit. Psychiatric: Mood and Affect: Mood normal. Behavior: Behavior normal. Thought Content: Thought content normal. Judgment: Judgment normal. Assessment/Plan: Diagnoses and all orders for this visit: Vertigo Comments: triggered by new diagnosis of covid. continue prn zofran, meclizine. send in prednisone if needed Orders: - predniSONE (DELTASONE) 10 MG tablet; Take 3 tablets daily for 2 days, then 2 tablets daily for 2 days, then 1 tablet daily for 2 days and stop. Total of 6 days . . COVID-19 Comments: advised to alternate tylenol 1000 mg every 4 hours with advil 600 mg for next 2 days. rest/hydrate. monitor symptoms. recheck 07/18 documented in this encounter [place] 06-19-2021 History of Present illness Narrative Video Visit [facility] [address] [facility] [phone] Via Real-time Synchronous Audiovisual [facility] 06/19/2021 Trisha Sharp DO Provider Location: office Patient Location Machine Maintenance Mechanic: None Patient Location: Patient's Home Patient: Caleb Carpenter Date of : 1970 (50 y.o. female) PCP: Trisha Sharp DO Video Visit Consent Statement: I discussed risks, benefits and alternatives of a real-time synchronous audiovisual consultation with the patient (and any accompanying persons) including the risks that the patient s personal health details and medical records will be discussed over real-time, synchronous, interactive video/audio/telecommunication technology, the visit will not be recorded without the express consent of both the provider and the patient, and that there are some limitations compared to [id number] evaluations. We elected to proceed. Patient ID: Caleb Carpenter is a 50 y.o. female. Sinus Problem This is a new problem. The current episode started in the past 7 days. The problem has been gradually worsening since onset. Her pain is at a severity of 3/10. The pain is mild. Associated symptoms include ear pain, headaches, a hoarse voice, sinus pressure, sneezing and a sore throat. Pertinent negatives include no chills, congestion, coughing, diaphoresis, neck pain, shortness of breath or swollen glands. Past treatments include oral decongestants. The treatment provided mild relief. Has been going on for almost 2 weeks The following portions of the patient's history were reviewed and updated as appropriate: allergies, current medications, past family history, past medical history, past social history, past surgical history and problem list. Review of Systems Constitutional: Negative for chills, diaphoresis, fatigue and fever. HENT: Positive for ear pain, hoarse voice, postnasal drip, rhinorrhea, sinus pressure, sinus pain, sneezing and sore throat. Negative for congestion. Respiratory: Negative for cough and shortness of breath. Cardiovascular: Negative for chest pain, palpitations and leg swelling. Musculoskeletal: Negative for myalgias and neck pain. Neurological: Positive for headaches. Negative for dizziness. Objective Physical Exam Vitals and nursing note reviewed. Constitutional: Appearance: Normal appearance. HENT: Head: Normocephalic and atraumatic. Eyes: Conjunctiva/sclera: Conjunctivae normal. Pulmonary: Effort: Pulmonary effort is normal. No respiratory distress. Neurological: General: No focal deficit present. Mental Status: She is alert and oriented to person, place, and time. Cranial Nerves: No cranial nerve deficit. Psychiatric: Mood and Affect: Mood normal. Behavior: Behavior normal. Thought Content: Thought content normal. Judgment: Judgment normal. Assessment/Plan: Diagnoses and all orders for this visit: Acute frontal sinusitis, recurrence not specified Comments: will treat with augmentin for 10 days Orders: - amoxicillin-clavulanate (AUGMENTIN) 875-125 mg per tablet; Take 1 (one) tablet by mouth 2 (two) times a day for 10 days . documented in this encounter [place] 03-09-2021 Note HNO ID: [id number] Author: Caleb Lindo PT Service: ? Author Type: Physical Therapist Type: Progress Notes Filed: 03/09/2021 8:41 AM Note Text: 03/09/2021 [facility] PHYSICAL THERAPY DISCONTINUANCE OF CARE Plan of Care Period: Start of Care Date: 11/29/20 Last Visit Date: 01/17/2021 Therapy Program: The following is a summary of the interventions provided for this episode of care; Therapeutic exercise, Neuromuscular re-education, Manual therapy and Patient/Family/Caregiver Education Assessment: The following is the goal status: Goals for Episode of Care: UPDATED 01/17/2021: created on 11/29/20 through 01/28/21 Patient will be able to correct postural deviations independently in order to allow for normal mechanics, to decrease current pain and prevent future Recurrence; partially met. Adopts a more forward head posture but does try to self correct more often. Fatigues quickly. Patient will be able to decrease pain to 2/10 at rest and with functional activities: Not MET: Chronic pain. Newly diagnosed with fibromyalgia. Patient will perform Romberg stance on compliant surface for 30 seconds without LOB: MET Patient will demonstrate normal active cervical spine range of motion to restore posture and complete ADLS with trace report of dizziness/imbalance: MET Patient will be independent with home exercise program and progression: MET Patient will return to prior level of function with all activities of daily living with trace reports of dizziness: MET: Rare dizziness Patient will be able to walk household and community distances with safe, functional gait pattern with trace report of dizziness/imbalance: MET Patient with experience improved sleep tolerance due to decreased pain: not met: Pain remains an issue. Slightly deeper sleep with new meds from [facility] but pain limits tolerance. Patient Goals: figure out whats going on, get back to normal : not met: Going to contact MD for med adjust due to limited improvement to date with new meds. Managing better without dizziness or POE. Based on the most recent progress report, patient was progressing as expected toward functional goals based on home exercise program compliance, documented objective information regarding range of motion, resolution of dizziness and appointment compliance. Reason for Discontinuation of Care: Patient was to self manage and call if she experienced any issues. Patient has not returned to therapy or scheduled additional follow-up appointments. Caleb Lindo, PT [facility] 01-17-2021 Note HNO ID: [id number] Author: Caleb (Pt) Guicho Service: ? Author Type: Physical Therapist Type: Progress Notes Filed: 01/20/2021 9:21 AM Note Text: Episode Visit Count: 5 Therapist That Will Oversee The Plan Of Care: Caleb Lindo Start of Care Date: 11/29/20 Onset Date: 06/15/20 Patient Identified by Name and Date of : Yes [facility] PHYSICAL THERAPY PROGRESS REPORT PLAN OF CARE UPDATE: Assessment: Caleb Carpenter exhibits difficulty with continued pain. Her neck ROM is improved, her balancce is improved with increased stability on all levels of the CTSIB. Dizziness is essentially resolved with only rare instances of dizziness. She continues to be limited with sleeping and general activity tolerance due to pain and fatigue. She is following Rheumatology for suspected fibromyalgia diaganosis. She is progressing as expected towards her therapy goals as demonstrated by: documented subjective information on progress and documented objective information regarding gait, range of motion and balance. Patient to continue with HEP and seek alternative ex classes near her home like Fibro/arthritis classes and/or yoga. Functional gains: much reduced dizziness Improved postural awareness Improved gait quality Improved balance / decreased risk of falls Increased independence with HEP Increased ROM Goals for Episode of Care: UPDATED 01/17/2021: created on 11/29/20 through 01/28/21 Patient will be able to correct postural deviations independently in order to allow for normal mechanics, to decrease current pain and prevent future Recurrence; partially met. Adopts a more forward head posture but does try to self correct more often. Fatigues quickly. Patient will be able to decrease pain to 2/10 at rest and with functional activities: Not MET: Chronic pain. Newly diagnosed with fibromyalgia. Patient will perform Romberg stance on compliant surface for 30 seconds without LOB: MET Patient will demonstrate normal active cervical spine range of motion to restore posture and complete ADLS with trace report of dizziness/imbalance: MET Patient will be independent with home exercise program and progression: MET Patient will return to prior level of function with all activities of daily living with trace reports of dizziness: MET: Rare dizziness Patient will be able to walk household and community distances with safe, functional gait pattern with trace report of dizziness/imbalance: MET Patient with experience improved sleep tolerance due to decreased pain: not met: Pain remains an issue. Slightly deeper sleep with new meds from [facility] but pain limits tolerance. Patient Goals: figure out whats going on, get back to normal : not met: Going to contact MD for med adjust due to limited improvement to date with new meds. Managing better without dizziness or POE. Planned Interventions, Frequency, and Duration: (further PT on hold. cont with HEP. WIll call with issues), 4 weeks Total Number of Visits Planned: (to be determined if symptoms regress ) Patient to be seen for PLAN FOR NEXT VISIT: pt to self manage. Encouraged to seek ex programs closer to home, IE: fibro aquatic classes/yoga classes. Pt to call with issues. Prognosis: Fair Fair due to: clinical presentation(chronic pain issues ) SUBJECTIVE: Patient Reason for Visit: neck, elbows, knees and feet very painful. Fatigue is also a main issue. Tries to do activities and gets wiped out. Still not sleeping well. 4-5 hours of solid sleep. Does feel the sleep is a little deeper. On new med from [facility] but not noting any signficant improvement. Rhuematology feels she has fibromyalgia. Feels like her concussion symptoms have resolved and now just dealing with her chronic pain issues. Denies any dizziness today, states dizziness is rare. Pain: Pain Pain Level: 6 Pain Location: Other: See Comment(generally all over, neck seems worse ) Description: Sore;Stiffness Frequency: Continuous Post Treatment Pain Post Treatment Pain Level: 5 Post Treatment Pain Location: Neck(generalized extremity pain continues. ) PROMIS Scales Higher is Better 10/25/2020 GH Physical - Score Incomplete GH Mental - Score 48.3 GH Mental - Percentile 43 % T-scores: mean of general population = 50. 5 points is clinically meaningfully difference Percentiles provide an indication of how the patient's score ranks in relation to the general population. Higher percentile rankings indicate better function/quality of life. 50th percentile is the average of the general population and indicates half of respondents had a worse score. T-scores: mean of general population = 50. 5 points is clinically meaningfully difference Percentiles provide an indication of how the patient's score ranks in relation to the general population. Higher percentile rankings indicate better function/quality of life. 50th percent (more content not included)... [facility] 12-24-2020 Note HNO ID: [id number] Author: Steffbrittany Ann Service: ? Author Type: Physical Therapist Type: Progress Notes Filed: 12/24/2020 12:02 PM Note Text: Episode Visit Count: 4 Therapist That Will Oversee The Plan Of Care: Caleb Lindo Start of Care Date: 11/29/20 Onset Date: 06/15/20 [facility] PHYSICAL THERAPY TREATMENT NOTE ASSESSMENT: Pt demonstrates limited tolerance to therex this date, painful with most tasks. Kept therex gentle secondary too. Challenged with [employer] balance tasks, but only nominal sx's with. Would benefit from continued therapy to optimize function and minimize pain. PLAN FOR NEXT VISIT: recheck next session and update POC. SUBJECTIVE: Patient Reason for Visit: Pretty sore. Multi region joint pain. Seeing [facility]. Whole body pedersen and is achy. Dizziness and imbalance improving. Manual therapy helpful for cervical region. Neck pain moderate 3-4/10, stiff. Pain: see above OBJECTIVE MEASURES WITH LEVEL OF FUNCTION: TREATMENT: Therapeutic Exercise: 1: UBE x 4 min level 1 change FWD with status update 2: B UT,levator, flexion stretch cervical 2 x 20 sec ea 3: cervical retractions 10 x 5 sec 4: Doorway stretch mid and high 2 x 20 sec 5: posture stretch with scap pinch and shoulder extn press 10 x 10 sec Skilled Intervention: Patient was educated in proper exercise technique and purpose for exercises. Skilled judgment was provided in selection of appropriate interventions. Provided written instruction for home exercise program to facilitate proper performance and compliance. Correct performance of therapeutic exercises was facilitated with verbal and visual cuing. Manual Therapy: 1: manual distraction, suboccipital release, laminar release, SCM release, lateral/SB, unilateral P-A cervcial mobs Skilled Intervention: Manual skills to improve joint mobility, ROM, and decrease pain. Utilized anatomy knowledge of the therapist, and assessment of patient's response to intervention. Billing: [place]: Therapeutic Exercise (48316): 1:1 time: 30 minutes (2 units: 23-37 mins) Manual Therapy (36007): 1:1 time: 15 minutes (1 unit: 8-22 mins) Total time / Length of visit: 45 minutes Steff Ann PT [facility] 12-14-2020 Note HNO ID: [id number] Author: Caleb Lindo Service: ? Author Type: Physical Therapist Type: Progress Notes Filed: 12/15/2020 11:06 PM Note Text: Episode Visit Count: 3 Therapist That Will Oversee The Plan Of Care: Caleb Lindo Start of Care Date: 11/29/20 Onset Date: 06/15/20 Patient Identified by Name and Date of : Yes REHABIL[facility]ATION AND SPORTS [facility]ERAPY PHYSICAL THERAPY TREATMENT NOTE ASSESSMENT: Caleb Carpenter demonstrated difficulty with continued sense of fatigue, pain, decreased tolerance to activity, abnormal posture. She experienced difficulty obtaining neutral cervical postures and fatigued quickly on ex. The patient will continue to benefit from ongoing skilled physical therapy for progression of VR, balance, cervical and thoracic spinal work and postural strengthening. PLAN FOR NEXT VISIT: continue with postural strengthening, VOR, cervical and upper throacic work SUBJECTIVE: Patient Reason for Visit: tired and sore. UT areas tender. Feels about the same. Has a rhuematology appointment later this month. Body just feels fatigued after activity. *repeated throughout the session that today is just one of her fatigued days. Pain: Pain Pain Level: 4 Pain Location: Shoulder - Right;Shoulder - Left(UT regions) Description: Sore Frequency: Continuous Post Treatment Pain Post Treatment Pain Level: No Change Post Treatment Symptoms: fatigued OBJECTIVE MEASURES WITH LEVEL OF FUNCTION: Patient appears tired. Flexed/rounded posture with forward head noted. Primary gait appears WNL. TREATMENT: Therapeutic Exercise: 1: UBE retro, level 1 x 3 min 2: wall angels x 10 reps 3: wall posture with chin tucks x 3 sec hold x 10 reps 4: facing wall lower trap Y' s x 10 reps 5: *peach T-band scapular retraction x 10 reps 6: *wall stands for posture checks intermittently in the day. 7: education on sleep cycles with fatigue and cognitive processes 8: education on importance of posutre awareness with cervical tension . Skilled Intervention: Patient was educated in proper exercise technique and purpose for exercises. Reviewed and educated patient on additions/changes for home exercise program as above (*) Skilled judgment was provided in selection of appropriate interventions. Provided written instruction for home exercise program to facilitate proper performance and compliance. Correct performance of therapeutic exercises was facilitated with verbal, visual and tactile cuing. Education regarding posture correction/use of active awareness and posture ex Education as noted above Manual Therapy: Joint Mobilizations: Patient Position;Joint Patient Position: supine Joint: OA flexion, gentle lateral cervical glides Soft Tissue Mobilization: B UTs, B cervical paraspinals, B suboccipital release Manual Traction: x 4 min intermittent Skilled Intervention: Manual skills to improve joint mobility, ROM, and decrease pain. Utilized anatomy knowledge of the therapist, and assessment of patient's response to intervention. Billing: [place]: Therapeutic Exercise (78994): 1:1 time: 43 minutes (3 units: 38-52 mins) Manual Therapy (65025): 1:1 time: 17 minutes (1 unit: 8-22 mins) Total time / Length of visit: 63 minutes Caleb Lindo, [facility] 12-07-2020 Note HNO ID: [id number] Author: Caleb (Pt) Guicho Service: ? Author Type: Physical Therapist Type: Progress Notes Filed: 12/08/2020 8:38 AM Note Text: Episode Visit Count: 2 Therapist That Will Oversee The Plan Of Care: Caleb Lindo Start of Care Date: 11/29/20 Onset Date: 06/15/20 Patient Identified by Name and Date of : Yes REHABILITATION AND SPORTS THERAPY PHYSICAL THERAPY TREATMENT NOTE ASSESSMENT: Caleb Carpenter demonstrated difficulty with imbalance, sense of dizziness, tight cervical and thoracic muscles and abnormal postures. She has balance deficits on CTSIB indicating visual dependence and decreased convergence tolerance. The patient will continue to benefit from ongoing skilled physical therapy for progressive therapy for spinal mobility, posture strengthening, cautious progression of VOR and oculomotor ex. PLAN FOR NEXT VISIT: scapular strengthening, cervical work, progress oculomotor/VOR SUBJECTIVE: Patient Reason for Visit: stopped doing the X-1 ex due to neck sounds. [place] slighty woozy after doing the ex. Neck feels tired after strengthening ex. Pain: Pain Pain Level: 0(sensation of tiredness/weakness of the neck. ) Post Treatment Pain Post Treatment Pain Level: No Change Post Treatment Symptoms: fatiqued OBJECTIVE MEASURES WITH LEVEL OF FUNCTION: Patient presents with guarded posture and forward head. CTSIB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 Ballistics Expert Relationship Specialty Start Date End Date Trisha Sharp, DO [address] [address] PCP - General Internal Medicine 09/24/17 Trisha Sharp, DO [address] [address] PCP - SHIVAM Attributed Provider - MMO Commercial 06/25/12 11/10/50 Lala Paez, DO [address] [place] [address] Consulting Physician Obstetrics/Gynecology 03/20/18 Trisha Sharp, DO [address] [address] SHIVAM Attributed Provider - Internal Medicine Internal Medicine 10/31/17 Ballistics Expert Relationship Specialty Start Date End Date Trisha Sharp, DO [address] [address] PCP - General Internal Medicine 09/24/17 Trisha Sharp, DO [address] [address] PCP - SHIVAM Attributed Provider - MMO Commercial 06/25/12 11/10/50 Lala Paez, DO [address] [place] [address] Consulting Physician Obstetrics/Gynecology 03/20/18 Trisha Sharp, DO [address] [address] SHIVAM Attributed Provider - Internal Medicine Internal Medicine 10/31/17 Ballistics Expert Relationship Specialty Start Date End Date Mc Herrera MD [address] [place], [place] [address] PCP - General Family Practice 03/22/17 Ballistics Expert Relationship Specialty Start Date End Date Mc Herrera MD [address] [place], [place] [id number] PCP - General Family Practice 03/22/17 Ballistics Expert Relationship Specialty Start Date End Date Mc Herrera MD [address] [place], [place] [id number] PCP - General Family Practice 03/22/17 Ballistics Expert Relationship Specialty Start Date End Date Mc Herrera MD [address] [place], [place] [id number] PCP - General Family Medicine 03/22/17 Ballistics Expert Relationship Specialty Start Date End Date Trisha Sharp DO PCP - General Internal Medicine 09/27/21 Source Comments (unrecognize d section and content) In the event this informatio n is protected by the Federal Confidentiality of Alcohol and Drug Abuse Patient Records regulations: The Federal rules restrict any use of the information to criminally investigate or prosecute any alcohol or drug abuse patient.[facility] the event this information is protected by the Federal Confidentiality of Alcohol and Drug Abuse Patient Records regulations: The Federal rules restrict any use of the information to criminally investigate or prosecute any alcohol or drug abuse patient.[facility] the event this information is protected by the Federal Confidentiality of Alcohol and Drug Abuse Patient Records regulations: The Federal rules restrict any use of the information to criminally investigate or prosecute any alcohol or drug abuse patient.[facility] the event this information is protected by the Federal Confidentiality of Alcohol and Drug Abuse Patient Records regulations: The Federal rules restrict any use of the information to criminally investigate or prosecute any alcohol or drug abuse patient.[facility] Scheduled Active and Recently Administ ered Medications (unrecognized section and content) FOR RECORDS PERTAINING TO PATIENTS WHO ARE OR HAVE BEEN ENROLLED IN A CHEMICAL DEPENDENCY/SUBSTANCEABUSE PROGRAM, SOME INFORMATION MAY BE OMITTED. This clinical summary was aggregated from multiple sources. Caution should be exercised in using it in the provision of clinical care. This summary normalizes information from multiple sources, and as a consequence, information in this document may materially change the coding, format and clinical context of patient data. In addition, data may be omitted in some cases. CLINICAL DECISIONS SHOULD BE BASED ON THE PRIMARY CLINICAL RECORDS. [facility]. provides no warranty or guarantee of the accuracy or completeness of information in this document.
== END | disposition home or self-care (01) ==
PROVIDERS: PCP Internal Medicine; Referring Provider Obstetrics & Gynecology; Visit Provider Obstetrics & Gynecology
DX: Z01.818 Encounter for other preprocedural examination (principal)
CPT/HCPCS: 36415; 85027; 86850; 86900; 86901

== ENCOUNTER 2023-11-12 11:33 | Day surgery (SDC) | payer OTHER, SELFPAY ==
--- NOTE | 2023-11-12 13:10 | EMB_PTH ---
PATHOLOGY RESULTS PATIENT: CALEB GELLER LOC: [facility] U#:[id number] AGE/SX: 53/F ROOM: RE11/12/[address]: Dr. Christel Avelar MD : 1970 BED: DIS: 11/12/2023 SPEC #: [id number] RECD: 11/12/23 16:55 STATUS: CHAYA LEAL #: [id number] GIOVANNY: 11/12/23 13:[address]: Christel Avelar DEPT: SURGICAL PATHOLOGY RECD BY: Eunice Jacob ENTERED: 11/13/23 08:59 SP TYPE: ENDOM BX/C MARGARITA DR: Dr. Shayy Tyson MD Tissues: Endometrium, NOS Procedures: Surgery Specimen Level IV HEADER OPERATION: Hysteroscopy, dilation and curettage Symphion, polypectomy PRE-OP DIAGNOSIS: Uterine fibroid, menorrhagia, climacteric, endometrial polyp TISSUE SUBMITTED: Endometrial curettings and polyps MICROSCOPIC DIAGNOSIS Endometrial curettings and polyp: Weakly proliferative to inactive endometrium with focal glandular breakdown. Fragments of benign myometrium with changes suspicious for adenomyosis. Polypoid fragment of benign endocervical tissue. See comment. AM:johnny 11/14/2023 COMMENT An endocervical polyp is favored. Clinical correlation is suggested. MICROSCOPIC DESCRIPTION Slides are reviewed. GROSS DESCRIPTION Received in fixative is one container labeled with the patient's name and designated endometrial curettings and polyps. The specimen consists of multiple irregular fragments of curran soft tissue that in aggregate measure 5.0 x 3.0 x 0.3 cm. Also present in the container is a pink, congested polyp measuring 1.0 x 1.0 x 0.3 cm. The polyp is bisected. The entire specimen is submitted in three cassettes as follows: 1 & 2 - curran soft tissue, 3 - polyp. / SJ:johnny 11/13/2023 TC:5 CPT: 78842
[2023-11-12 13:11] VITALS: BP 148/78; PULSE 66; RESP 16; TEMP 36.7; O2SAT 100; BMI 22.8
[2023-11-12] MEDS: Lactated Ringers 1,000 ML 15 ML IV (13:20)
--- NOTE | 2023-11-12 13:21 | HP.PCM_ITS ---
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 Is patient in pain?: No Allergies citalopram Adverse Reaction (Intermediate, Verified 10/22/23 11:20) ITCHING Medications lisinopril 20 mg tablet 20 mg PO DAILY #90 tabs 08/05/23 [Rx Confirmed 10/22/23] Is last menstrual period known: Yes Last Menstrual Period: 10/09/23 Post menopausal: No Patient : No : No PFSH Medical History Fatigue History of hearing problem Hx of irritable bowel syndrome Hx of migraines Hx of seasonal allergies Hx: UTI (urinary tract infection) Hypertension Seasonal allergies Shoulder pain Surgical History H/O tubal ligation History of cholecystectomy Family History Mother Heart disease Arthritis Myocardial infarction Hypertension HyperlipidemiaFather Diabetes Hypertension Hyperlipidemia MelanomaSon Kidney disease Social History household members: family housing: house current occupational status: unemployed sexually active: Yes Smoking Status: Never smoker Electronic Cigarette Use: not used alcohol intake: never substance use type: does not use caffeine: No what type of physical activity do you participate in: walking frequency: 5-6 times per week seatbelt use: always do you feel safe at home: Yes additional social history: [employer] 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 11cm decreasing in size only one menses this fall Female Reproductive History Last Menstrual Period: 10/09/23 History 6 Elective abortions Hx Para 6 Spontaneous abortions Hx # Term Pregnancies Ectopic pregnancies Hx # Pregnancies Multiple births # of living children Past Pregnancies Del. Date Name GA/Weeks Outcome Route Bth Weight Infant Gen Labor Lgth Anesthesia Del Locatn Provider FOB Unknown Adalid-1993 Unknown J Carlos-1995 Unknown Christo-1996 Unknown Tawanda-2004 Unknown Ora-2008 Unknown Renelle-2010 ROS Const Constitutional: Reports fatigue; Denies fever(s), headache(s), increased appetite, poor appetite, weight gain or weight loss ENT ENT: Reports system reviewed and no additional complaints, except as documented Cardio Card: Denies chest pain Resp Resp: Denies cough or dyspnea GI GI: Reports as per HPI; Denies abdominal pain, constipation, nausea or vomiting : Reports as per HPI; Denies difficulty voiding, dysuria, hematuria, nipple discharge, pelvic pain, urinary frequency, urinary incontinence, urinary hesitancy, urinary urgency, vaginal discharge, vaginal dryness, vaginal odor, vaginal pruritus or other Musc Musc: Denies arthralgias, back pain or muscle weakness Skin Skin/Breast: Denies alopecia, change in hair, dry skin, breast mass, breast pain, breast skin changes or nipple discharge Neuro Neuro: Reports system reviewed and no additional complaints, except as documented Psych Psych: Reports system reviewed and no additional complaints, except as documented Endo Endo: Denies cold intolerance, excessive sweating, heat intolerance or polydipsia Hermes/Lymph Hematologic/Lymphatic: Denies easy bleeding, Denies easy bruising and Denies lymphadenopathy Exam Const General: cooperative, healthy appearing, comfortable, no acute distress and well developed Orientation: alert [facility] Head: normal to inspection and normocephalic Ears: hearing grossly normal bilaterally and external ears normal Nose: external nose normal and nares normal Face and sinus: normal facial exam Neck Neck: normal visual inspection and no lymphadenopathy Thyroid: thyroid normal Chest Chest palpation & inspection: normal inspection of the chest Resp Effort & Inspection: normal respiratory effort Auscultation: clear to auscultation bilaterally Cardio Rate: regular rate Rhythm: regular rhythm Heart Sounds: S1 normal and S2 normal GI Inspection: normal to inspection and non-distended Palpation: soft and no hepatosplenomegaly General: bladder normal to palpation External Female Exam: normal external appearance and normal appearance of the urethra Urethra: normal appearance of the urethra, normal palpation and no discharge Speculum Exam - Vagina: normal appearance of the vagina and normal vaginal discharge Speculum Exam - Cervix: normal appearance of the cervix and lesion (polyp seen) Bimanual Exam- Vagina & Uterus: bladder normal to palpation, uterine mobility n ormal, consistency normal, normal palpation, non-tender and other Bimanual Exam- Adnexa, other: normal adnexae, adnexae mobile, no masses and normal Pelvic Support: normal Musc Other: gross motor intact no deficits, full bilateral strength Skin General: no rashes or lesions noted Neuro General: patient alert, patient awake, moves all extremities and no focal motor deficits Motor: muscle tone normal throughout Extrem General: normal to inspection and no pedal edema Psych Appearance: grossly normal Mental Status: mental status grossly normal Affect: normal affect Speech and Movement: speech and movement normal Office Procedures Endometrial Biopsy Endometrial Biopsy Test: Yes declined Consent Signed: Yes Time out checklist: patient, procedure, site marked/identified, positioning of patient, supplies available, allergies confirmed and team agrees on procedure tenaculum used: Yes dilator used: No Details: Cervix prepped with betadine and pipelle inserted into uterus without complication. Specimen obtained and sent to lab for analysis. All instruments removed from vagina without complications. Excellent hemostasis noted. Coding Level of Care Code Off vis,est,level 3 Diagnoses Uterine fibroid D25.9 Menorrhagia with regular cycle N92.0 Climacteric N95.1 Endometrial polyp N84.0 CPT Codes Endometrial Biopsy (63149) Assessment and Plan Assessment and Plan (1) Uterine fibroid: Status: Acute Comment: failed lysteda. myfembree not covered and doesn't want due to maybe being a kidney donor for son. discussed possible LAVH BS in the future. possible polyp, plan repeat US in different part of cycle, plan d and c hysteroscopy if present, consider IUD insertion at time. fibroids not impinging on cavity. (2) Menorrhagia with regular cycle: Status: Acute (3) Climacteric: Status: Acute Comment: support given (4) Endometrial polyp: Status: Acute Comment: d and c hysteroscopy symphion, emb done. surgery delayed per patient request due to family issues. Orders: Orders Endometrial Biopsy Today N93.9 - Abnormal uterine and vaginal bleeding, unspecified Plan After discussing the patient's diagnosis and treatment plan options, patient wishes to proceed with surgical management. I have discussed with the patient the risks, benefits, and alternatives of the procedure which include but are not limited to risks of anesthesia, bleeding, infection, possible damage to bowel, bladder, or surrounding vasculature which could lead to additional surgery to evaluate any complications. Patient agrees to procedure and wishes to proceed. ACOG/uptodate references given for additional information regarding procedure. UPDATE- I have seen the patient and performed any clinically relevant updates to the history and physical exam. Christel Avelar MD
[2023-11-12] MEDS: Lidocaine 1% (20 ml mdv) 20 ML Vial (14:56)
[2023-11-12 15:20] VITALS: BP 104/59; BP 148/78; PULSE 79; RESP 18; TEMP 37.1; O2SAT 94
[2023-11-12 15:25] VITALS: BP 109/67; BP 148/78; PULSE 80; RESP 16; O2SAT 95
[2023-11-12 15:30] VITALS: BP 108/66; BP 148/78; PULSE 77; RESP 16; O2SAT 95
[2023-11-12 15:54] VITALS: BP 119/69; BP 148/78; PULSE 70; RESP 16; TEMP 37; O2SAT 98
--- NOTE | 2023-11-12 16:00 | DCINST_ITS ---
Discharge Instructions Diet Discharge Diet: No restrictions Activity Discharge Activity: Return to Normal Activity, May Shower and May Take a Tub Bath (after 1 week) May resume sexual activity in: 1-2 weeks Weight Bearing Status: Weight bearing as tolerated Lifting Restrictions: none Dressing / Incision Call your doctor if you observe: Fever of 101 or Higher, Using more than 1 pad per hour, Shortness of breath and Uncontrolled pain Follow Up Care Please Follow Up With: Christel Avelar MD When: Call [phone] to schedule appointment. Test Results: Test results from this visit will be discussed in further detail at your follow- up appointment, if applicable. Discharge Plan Admission Attending Provider: Christel Avelar Primary Care Provider: Shayy Tyson Discharge Orders/Prescriptions Prescriptions: No Action multivitamin [Daily Multi-Vitamin] Tablet 1 tab PO DAILY cholecalciferol (vitamin D3) [Vitamin D3] 50 mcg (2,000 unit) capsule 50 mcg PO DAILY lisinopril 20 mg tablet 20 mg PO DAILY Qty: 90 1RF Referrals / Follow Up: Shayy Tyson MD [Primary Care Provider] - Disposition Disposition (needs filled in before D/C Order can be placed): Home, Self Care
--- NOTE | 2023-11-12 16:00 | PCM.OPRPT ---
Report of Operation Pre-Operative Diagnosis: see problem list Post-Operative Diagnosis: same Surgery/Procedure Performed:: D&C hysteroscopy polypectomy using symphion Description of Surgical Findings:: endocervical polyp and endometrial polyp Surgeon: Christel Avelar nuclear supervising operator: None Type of Anesthesia: Local MAC Special Medications: none Specimen's removed: EMC, polyp Drains: none Estimated Blood Loss (mL): 50 Fluids Replaced: crystalloid Description of Procedure: Patient was prepped and draped in a normal sterile fashion under MAC anesthesia. A weighted speculum was placed in the vagina and the anterior lip of the cervix was grasped with a single-tooth tenaculum. A paracervical block was placed with 1% lidocaine. Cervix was progressively dilated to allow passage of a 5 mm hysteroscope. The lining was fully visualized and noted to have an endocervical polyp removed with forceps and an endometrial polyp . Uterine sounded to 10 cm. Using the symphion device, the polyp was progressively removed without complications. Direct visual curettage was performed using the device , and all specimens were sent to pathology. All instruments were removed from the vagina and excellent hemostasis was noted. Patient was awoken and taken to recovery in stable condition. Grafts/Implants Used: none Procedure Start Time: 14:46 Procedure Stop Time: 15:15 Complications none Admit VTE Documentation VTE Present on Admission: No VTE Mechan Device Prophylaxis: SCD's Multi Select Codes Urinary/Genital Urinary/Genital CPT Codes: 25015 Hysteroscopy,EMC, Polypectomy
[2023-11-12] MEDS: Oxycodone/Apap 5/325 Tablet PO (16:20)
[2023-11-12 16:57] VITALS: BP 118/67; BP 148/78; PULSE 74; RESP 16; TEMP 37.1; O2SAT 97
== END 2023-11-12 17:08 | disposition home or self-care (01) ==
LOC: SDC 11:47 → AC 12:50
PROVIDERS: PCP Internal Medicine; Referring Provider Obstetrics & Gynecology; Visit Provider Obstetrics & Gynecology
PROC: 0UB98ZZ Excision of Uterus, Via Natural or Artificial Opening Endoscopic (ICD-10-PCS; CPT 58558; principal; 2023-11-12 13:00)
DX: N84.0 Polyp of corpus uteri (principal); N92.0 Excessive and frequent menstruation with regular cycle; I10 Essential (primary) hypertension; Z79.899 Other long term (current) drug therapy
CPT/HCPCS: 58558; 00952; 88305; J7120; J2405

== ENCOUNTER → 2024-06-09 | Outpatient (CLI) | payer BC, SELFPAY ==
[2024-06-09 10:42] LABS: Absolute Lymphocyte Count 1.24 X10^3/uL (0.83-4.51); Absolute Neutrophil Count 2.2 X10^3/uL (2.0-7.7); Basophil# 0.02 X10^3/uL; Basophil% 0.5 % (0-1); Eosinophil# 0.21 X10^3/uL; Eosinophils% 5.2 % (0-5); Hematocrit 42.5 % (37-47); Hemoglobin 14.4 g/dL (12.0-15.0); Lymphocyte # 1.24 X10^3/ul (0.83-4.51); Lymphocyte % 30.5 % (19-41); Mean Corp Hgb Conc 33.9 g/dL (32-36); Mean Corpuscular Hgb 28.6 pg (27.0-32.0); Mean Corpuscular Volume 84.3 fL (81-99); Mean Platelet Vol. 10.4 fl (6.2-12.0); Monocyte# 0.38 X10^3/uL; Monocyte% 9.3 % (0-10); NRBC Flagged by Analyzer 0 % (0-5); Neutrophil # 2.21 X10^3/uL (2.7-7.7); Neutrophil % 54.3 % (47-70); Platelet Count 212 K/mm3 (150-450); RBC Distribution Width CV 12.5 % (11.6-14.6); RBC Distribution Width SD 37.9 fl (35.1-43.9); Red Blood Count 5.04 M/mm3 (4.2-5.4); White Blood Count 4.1 K/mm3 (4.4-11.0)
[2024-06-09 11:09] LABS: ALB/GLOB Ratio 1.2 RATIO (0.9-2.4); AST(SGOT) 34 U/L (15-37); Alanine Aminotransfer ALT/SGPT 39 U/L (13-56); Albumin, Serum 4.3 g/dL (3.2-5.0); Alkaline Phosphatase 61 U/L (45-117); Anion Gap 5 (5-15); BUN 14 mg/dL (7-18); BUN/Creat Ratio 17.4 RATIO (10-20); Calcium,Total 9.7 mg/dL (8.5-10.1); Chloride 105 mmol/L (98-107); Cholesterol 178 mg/dL (200); EST Glomerular Filtration Rate 78 mL/min (>60); Est Glom Filt Rate - Afr Amer 95 mL/min (>60); Globulin 3.7 g/dL (2.2-4.2); Glucose 101 mg/dL (74-106); High Density Lipoprotein 33 mg/dL; Potassium 4.3 mmol/L (3.5-5.1); Sodium Level 139 mmol/L (136-145); Triglycerides 353 mg/dL; Very Low Density Lipoprotein 71 mg/dL (5-40)
[2024-06-10 13:57] LABS: Hemoglobin A1c 5.1 % (3.8-5.6)
== END | disposition home or self-care (01) ==
LOC: LAB 10:09
PROVIDERS: PCP Internal Medicine; Referring Provider Internal Medicine Cardiovascular Disease; Visit Provider Internal Medicine Cardiovascular Disease
DX: I10 Essential (primary) hypertension (principal)
CPT/HCPCS: 36415; 80053; 80061; 83036; 85025

== ENCOUNTER → 2025-09-23 | Outpatient (CLI) | payer OTHER, SELFPAY ==
[2025-09-23 10:06] LABS: Hematocrit 42.2 % (37-47); Hemoglobin 14.5 g/dL (12.0-15.0); Immature Granulocytes Count 0.010 X10^3/uL (0.0-0.0); Mean Corp Hgb Conc 34.4 g/dL (32-36); Mean Corpuscular Volume 84.2 fL (81-99); Mean Platelet Vol. 10.5 fl (6.2-12.0); NRBC Flagged by Analyzer 0 % (0-5); Platelet Count 252 K/mm3 (150-450); RBC Distribution Width CV 12.3 % (11.6-14.6); RBC Distribution Width SD 37.3 fl (35.1-43.9); Red Blood Count 5.01 M/mm3 (4.2-5.4); White Blood Count 5.3 K/mm3 (4.4-11.0)
[2025-09-23 10:59] LABS: Cholesterol 205 mg/dL (<=200); Low Density Lipoprotein Calc. 119 mg/dL; Triglycerides 300 mg/dL; Very Low Density Lipoprotein 60 mg/dL (5-40); cholesterol:hdl ratio screen 6.14
[2025-09-23 12:59] LABS: AST(SGOT) 30 U/L (<=31); Alanine Aminotransfer ALT/SGPT 25 U/L (<=34); Albumin, Serum 4.7 g/dL (3.5-5.0); Alkaline Phosphatase 56 U/L (35-104); Anion Gap 11 (5-15); BUN 12 mg/dL (4-19); BUN/Creat Ratio 14.3 RATIO (10-20); Calcium,Total 9.8 mg/dL (7.6-11.0); Carbon Dioxide 25.8 mmol/L (21.0-32.0); Chloride 105 mmol/L (98-108); Globulin 3.0 g/dL (2.2-4.2); Glucose 99 mg/dL (70-99); Potassium 4.4 mmol/L (3.3-5.1)
== END | disposition home or self-care (01) ==
LOC: LAB 09:31
PROVIDERS: PCP Internal Medicine; Referring Provider Internal Medicine Cardiovascular Disease; Visit Provider Internal Medicine Cardiovascular Disease
DX: I10 Essential (primary) hypertension (principal); E78.2 Mixed hyperlipidemia
CPT/HCPCS: 36415; 80053; 80061; 85025